=== PATIENT | male | born 1950 | race Caucasian/White ===

== ENCOUNTER 2022-06-08 10:16 | Inpatient (IN) | payer OTHER ==
--- OUTSIDE RECORDS SUMMARY | 2022-06-08 10:23 | XMS REPORT | Continuity of Care Document ---
:1950 Author Organization [facility] t Address [address] [place] [address] Care Team Providers Name Role Phone Duncan ADAMS, Waldo Primary Care Physician Nadiya ADAMS, Prakash Sandoval Attending Clinician [phone] Muriel Nava MD Attending Clinician Bismark Cartwright MD Attending Clinician Da Rogers MD Attending Clinician Da Velarde MD Attending Clinician Gavin Kilpatrick MD Attending Clinician Carolyn ADAMS, Imeve M Attending Clinician Ray Carranza MD Attending Clinician Hermila Toure Attending Clinician Constance Figueredo Attending Clinician Unavailable Barry Rodas MD Attending Clinician MD DA VELARDE Attending Clinician Unavailable MATI SAL Attending Clinician Unavailable MD MATI SAL Attending Clinician Unavailable JIM COREAS Attending Clinician Unavailable Hedy Metz Attending Clinician BISMARK CARTWRIGHT Admitting Clinician Unavailable MURIEL NAVA Admitting Clinician Unavailable DA VELARDE Admitting Clinician Unavailable MD DA VELARDE Admitting Clinician Unavailable MATI SAL Admitting Clinician Unavailable MD MATI SAL Admitting Clinician Unavailable Payers Payer Name Policy Type Policy Number Effective Date Expiration Date S jenny Problems Condition Condition Condition Status Onset Resolution Last Treating Co mments Source Name Details Category Date Date Treatment Clinician Date Hernia of Hernia of Disease Active Met hodi abdominal abdominal 7-27 st cavity cavity 00:00: Hospita 00 l Ventral Ventral Disease Active Methodi hernia hernia 7-14 st with with 00:00: Hospita obstructio obstructio 00 l n n 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 00:00: Ho spita cular cular 00 l disease disease Hyperlipid Hyperlipid Disease Active M ethodi emia LDL emia LDL 606 st goal <70 goal <70 00:00: Hospit a 00 l Primary Primary Disease Active [facility] hypertensi hypertensi 6-06 st on on 00:00: Hospita 00 l 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 00:00: Ho spita on, on, 00 l subsequent subsequent encounter encounter for for fracture fracture with with 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 2-02 st after after 00:00: Hospita sternotomy sternotomy 00 l S/P mitral S/P mitral Disease Active M ethodi valve valve 1-19 st repair repair 00:00: Hospita 00 l 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 00:00: Hospita involving involving 00 [place] coronary coronary artery artery without without angina angina pectoris pectoris UNK UNK Diagnosis Active 2015-11-13 Mem oria Active 11-04 08:37:00 l 11/05/2015 00:00: Lyndon grider [facility] Coronary Coronary Problem Active 2015-11-16 Memoria arterioscl arterioscl 00:56:07 l erosis erosis Mike (disorder) (disorder) Active Problem 11/16/2015 [facility] Hemorrhoid Hemorrhoi Problem Active 2015-11-16 Memoria s ds 00:56:07 l (disorder) (disorder) He rmann Active Problem 11/16/2015 [facility] Hypertensi Hypertens Problem Active 2015-11-16 Memoria ve lukas 00:56:07 l disorder, disorder, Herm nanci systemic systemic arterial arterial (disorder) (disorder) Active Problem 11/16/2015 [facility] Hearing Hearing Problem Active 2015-11-16 Me moria loss loss 00:56:07 l (finding) (finding) Herm nanci Active Problem 11/16/2015 [facility] Spinal Spinal Problem Active 2015-11-16 Aristides lorie arthrodesi arthrodesi 00:56:07 l s s [place] (procedure (procedure ) ) Active Problem 11/16/2015 [facility] 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 Family History Family Member Diagnosis Comments Start Date Stop Date Source Natural brother Stroke [facility] Natural father Stroke [facility] Social History Social Habit Start Date Stop Date Quantity Comments Source History of tobacco 1971-04-13 Current smoker Me [facility]ist use 00:00:00 Hospital History [facility] Hospit al History [facility] Alcohol intake 2021-11-12 2021-11-12 [facility] 00:00:00 00:00:00 non-drinker Hospital (finding) Cigarettes smoked 2021-04-11 2021-04-[address] current (pack per 00:00:00 00:00:00 Hospita day) - Reported Cigarette 2021-04-11 2021-04-11 [facility] pack-[facility] 00:[facility]:00 00:00:00 Hospital Tobacco use and 2021-04-11 2021-04-11 Smokeless tobacco Me [facility]ist exposure 00:00:00 00:00:00 non-user Hospital History SDOH 2020-05-15 2020-05-15 1 [facility] Alcohol Frequency 00:00:00 00:00:00 Hospita l Social History 2015-11-09 2015-11-09 [facility] ermann 12:55:52 12:55:52 Sex Ass[birth year] At [birth year] M [facility] 00:00:00 00:00:00 Hospital Smoking Status Start Date Stop Date Source Ex-smoker 2021-04-11 00:00:00 2021-04-11 00:00:00 [facility] Medications Ordered Filled Start Stop Current Ordering Indication Dosage Frequency Signature Comments Components Source Medication Medication Date Date Medication? Clinician (SIG) Name Name jessica Yes 200mg QD Take 200 M ethodi ne (COQ-10 8- mg by st ORAL) 17:37: mouth Hospita 13 daily. l cholecalcif Yes QD Take by Met juliane jaquezol, 11-[address] vitamin D3, 17:37: daily. Hosp eloy (VITAMIN 13 l D3) 2,000 unit tablet Bifidobacte Yes 1{tbl} Q.5D Take 1 Me thodi rium 11-[address] infantis 17:37: mouth 2 Hospit a (DIGESTIVE 13 (two) l PROBIOTIC times a ORAL) day. ascorbic Yes QD Take by Method i acid 11-[address] (VITAMIN C 17:37: daily. Hospi ta ORAL) 13 l aspirin Yes 81mg QD Take 81 mg Meth angella (ECOTRIN) 11-[address] 81 MG 17:37: daily. Hospita enteric 13 LAST DOSE l coated TAKEN tablet 10/18/2021 cephalexin 2021- No 500mg [id number] Take 1 Methodi (Keflex) 7-30 08-05 [id number] capsule s t 500 MG 00:00: 04:59 3D (500 mg Hospita capsule 00 :00 total) by l mouth 3 (three) times a day for 5 days. traMADoL 2021- [place] [id number] 50mg Q6H Take 1 Metho di (Ultram) 50 7-16 07-24 tablet (50 s t mg tablet 00:00: 04:59 mg total) Ho spita 00 :00 by mouth l every 6 (six) hours as needed for moderate pain for up to 7 days .acute pain. clopidogreL 2021- No 75mg QD Take 75 mg Methodi (PLAVIX) 75 606 06-[address] mg tablet 10:55: 00:00 daily. Hospi ta 18 :00 l rivaroxaban Yes 2.5mg Q.5D Take 1 Met hodi (Xarelto) 6-[address] 2.5 mg 00:00: (2.5 mg Hospita tablet 00 total) by l tablet mouth 2 (two) times a day. Stop clopidogre l. metoprolol Yes 25mg QD Take 25 mg M ethodi succinate 1-[address] XL 00:00: daily. Hospita (TOPROL-XL) 00 l 25 mg 24 hr tablet atorvastati Yes 40mg QD Take 40 mg Methodi n (LIPITOR) 4-[address] 40 mg 00:00: every Hospita tablet 00 evening. l amoxicillin 2021- No QD daily. Met hodi -pot 2-14 06-06 st clavulanate 00:00: 00:00 Hospi ta (AUGMENTIN) 00 :00 l 875-125 mg per tablet Flumazenil No Notes: Memor ia 11-12 (Same as: l 17:17: Romazicon) Fentanyl No Notes: Memoria 11-12 (Same as: l 17:17: Sublimaze) Preservati ve free. Hydromorpho No 0.5 mg, Mem oria ne 11-12 0.5 mL, l 17:17: Route: IVP, Drug form: INJ, Q5Min, Dosing Weight 93.318, kg, PRN Pain Score 7-10, Start date: 11/13/15 12:17:00 CDT, Duration: 4 doses or times, Stop date: Limited # of times Promethazin No Notes: Do M emoria e 11-12 not give l 17:17: IV push. (Same as: Phenergan) Ondansetron No Notes: Aristides lorie 11-12 (Same as: l 17:17: Zofran) MEDICATION WASTE Product Size: 4 mg Product Wasted: ___ mg Meperidine No Notes: Memor ia 11-12 (Same As: l 17:17: Demerol) Diphenhydra No Notes: Aristides lorie mine 11-12 (Same as: l 17:17: Benadryl) Naloxone No Notes: Memoria 11-12 Same as l 17:17: Narcan Oxycodone No Notes: Memori a 11-12 (Same as: l 17:17: Roxicodone ) Flumazenil No Notes: Memor ia 11-12 (Same as: l 17:17: Romazicon) Acetaminoph No Notes: Aristides lorie en 11-12 Infuse l 17:17: over 15 minutes Do not exceed 4gm/day of acetaminop hen MEDICATION WASTE Product Size: 1000 mg Product Wasted: ___ mg esmolol No Notes: Memoria 11-12 (Same as: l 17:17: Brevibloc) Hydralazine No Notes: Aristides lorie 11-12 (Same as: l 17:17: Apresoline ) Push over 5 minutes Labetalol No Notes: Memori a 11-12 (Same as: l 17:17: Normodyne, Trandate) Push over 2 minutes Give bolus over 2-3 minutes. Sodium No 500 mL, Memoria Chloride 11-12 Rate: 125 l 0.154 17:17: ml/hr, Mike MEQ/ML 00 Infuse Injectable over: 4 Solution hr, Route: IV, Dosing Weight 93.318 kg, Total Volume: 500, Start date: 11/13/15 12:17:00 CDT, Duration: 30 day, Stop date: 12/13/15 12:16:00 CDT Calcium No 1,000 mL, Memor ia Chloride 11-12 Rate: 125 l 0.0014 17:17: ml/hr, Jackson MEQ/ML / 00 Infuse Potassium over: 8 Chloride hr, Route: 0.004 IV, Dosing MEQ/ML / Weight Sodium 93.318 kg, Chloride Total 0.103 Volume: MEQ/ML / 1,000, Sodium Start Lactate date: 0.028 11/13/15 MEQ/ML 12:17:00 Injectable CDT, Solution Duration: 30 day, Stop date: 12/13/15 12:16:00 CDT Fentanyl No Notes: Memoria 11-12 (Same as: l 17:17: Sublimaze) Preservati ve free. Hydromorpho No 0.5 mg, Mem oria ne 11-12 0.5 mL, l 17:17: Route: IVP, Drug form: INJ, Q5Min, Dosing Weight 93.318, kg, PRN Pain Score 7-10, Start date: 11/13/15 12:17:00 CDT, Duration: 4 doses or times, Stop date: Limited # of times Promethazin No Notes: Do M emoria e 11-12 not give l 17:17: IV push. (Same as: Phenergan) Ondansetron No Notes: Aristides lorie 11-12 (Same as: l 17:17: Zofran) MEDICATION WASTE Product Size: 4 mg Product Wasted: ___ mg Meperidine No Notes: Memor ia 11-12 (Same As: l 17:17: Demerol) Diphenhydra No Notes: Aristides lorie mine 11-12 (Same as: l 17:17: Benadryl) Naloxone No Notes: Memoria 11-12 Same as l 17:17: Narcan Oxycodone No Notes: Memori a 11-12 (Same as: l 17:17: Roxicodone ) Acetaminoph No Notes: Aristides lorie en 11-12 Infuse l 17:17: over 15 minutes Do not exceed 4gm/day of acetaminop hen MEDICATION WASTE Product Size: 1000 mg Product Wasted: ___ mg esmolol No Notes: Memoria 11-12 (Same as: l 17:17: Brevibloc) Hydralazine No Notes: Aristides lorie 11-12 (Same as: l 17:17: Apresoline ) Push over 5 minutes Labetalol No Notes: Memori a 11-12 (Same as: l 17:17: Normodyne, Mike 00 Trandate) Push over 2 minutes Give bolus over 2-3 minutes. Sodium 2016-0 No 500 mL, Memoria Chloride 11-12 Rate: 125 l 0.154 17:17: ml/hr, Jackson MEQ/ML 00 Infuse Injectable over: 4 Solution hr, Route: IV, Dosing Weight 93.318 kg, Total Volume: 500, Start date: 11/13/15 12:17:00 CDT, Duration: 30 day, Stop date: 12/13/15 12:16:00 CDT Calcium 0 No 1,000 mL, Memor ia Chloride 11-12 Rate: 125 l 0.0014 17:17: ml/hr, Mike MEQ/ML / 00 Infuse Potassium over: 8 Chloride hr, Route: 0.004 IV, Dosing MEQ/ML / Weight Sodium 93.318 kg, Chloride Total 0.103 Volume: MEQ/ML / 1,000, Sodium Start Lactate date: 0.028 11/13/15 MEQ/ML 12:17:00 Injectable CDT, Solution Duration: 30 day, Stop date: 12/13/15 12:16:00 CDT ketOROLAC 2015-0 No IV, ONCE Aristides lorie (ANES) 11-12 l 16:45: Mike 00 ketOROLAC 2015-0 No IV, ONCE Aristides lorie (ANES) 11-12 l 16:45: Jackson 00 ondansetron 0 No Route: IV, Memoria (ANES) 11-12 Drug form: l 16:43: INJ, ONCE, Stop date: 11/13/15 11:43:00 CDT phenylephri 0 No Route: IV, Memoria ne (ANES) 11-12 Drug form: l 16:43: INJ, ONCE, Stop date: 11/13/15 11:43:00 CDT ondansetron 0 No Route: IV, Memoria (ANES) 11-12 Drug form: l 16:43: INJ, ONCE, Stop date: 11/13/15 11:43:00 CDT phenylephri 2015-0 No Route: IV, Memoria ne (ANES) 11-12 Drug form: l 16:43: INJ, ONCE, Stop date: 11/13/15 11:43:00 CDT propofol 2016-0 No Route: IV, Mem oria (ANES) 8 Drug form: l 16:38: INJ, ONCE, Jackson Stop date: 11/13/15 11:38:00 CDT lidocaine 2016-0 No Route: IV, Me moria (ANES) 8 Drug form: l 16:38: INJ, ONCE, Mike Stop date: 11/13/15 11:38:00 CDT fentaNYL 20160 No Route: IV, Mem oria (ANES) 8 Drug form: l 16:38: INJ, ONCE, Mike Stop date: 11/13/15 11:38:00 CDT midazolam 2016-0 No Route: IV, Me moria (ANES) 8 Drug form: l 16:38: SOLN, Mike ONCE, Stop date: 11/13/15 11:38:00 CDT propofol 2016-0 No Route: IV, Mem oria (ANES) 11-12 Drug form: l 16:38: INJ, ONCE, Mike 00 Stop date: 11/13/15 11:38:00 CDT lidocaine 0 No Route: IV, Me moria (ANES) 8 Drug form: l 16:38: INJ, ONCE, Jackson Stop date: 11/13/15 11:38:00 CDT fentaNYL 2016-0 No Route: IV, Mem oria (ANES) 11-12 Drug form: l 16:38: INJ, ONCE, Jackson Stop date: 11/13/15 11:38:00 CDT midazolam 2016-0 No Route: IV, Me moria (ANES) 8 Drug form: l 16:38: SOLN, Mike 00 ONCE, Stop date: 11/13/15 11:38:00 CDT acetaminoph 0 No Route: IV, Memoria en (ANES) 8 Drug form: l (ANES) 15:57: INJ, Start Michelle nn 00 date: 11/13/15 10:57:00 CDT, Stop date: 11/13/15 11:57:00 CDT acetaminoph 0 No Route: IV, Memoria en (ANES) 8 Drug form: l (ANES) 15:57: INJ, Start Michelle nn 00 date: 11/13/15 10:57:00 CDT, Stop date: 11/13/15 11:57:00 CDT LR 500 ml No Route: IV, Me moria INJ (ANES) 11-12 Total l 15:53: Volume: Jackson 00 500, Start date: 11/13/15 10:53:00 CDT, Stop date: 11/13/15 11:53:00 CDT LR 500 ml No Route: IV, Me moria INJ (ANES) 11-12 Total l 15:53: Volume: Jackson 00 500, Start date: 11/13/15 10:53:00 CDT, Stop date: 11/13/15 11:53:00 CDT Ketorolac Yes 10 mg = 1 Mem oria Tromethamin 11-12 tab, PO, l e 10 MG 14:47: Q6H, PRN Lyndon n Oral Tablet 00 Pain, # 20 tab, 0 Refill(s) Ketorolac Yes 10 mg = 1 Mem oria Tromethamin 11-12 tab, PO, l e 10 MG 14:47: Q6H, PRN Lyndon n Oral Tablet 00 Pain, # 20 tab, 0 Refill(s) Albuterol No 3 mL, Memoria 0.833 MG/ML 11-12 Route: l / 14:42: NEB, Mike Ipratropium 00 Dosing Rolla Weight 0.167 MG/ML 93.318, Inhalant kg, ONCE, Solution STAT, Start date: 11/13/15 9:42:00 CDT, Stop date: 11/13/15 9:42:00 CDT Sodium 2015- No 500 mL, Memoria Chloride 11-12 Rate: 25 l 0.154 14:42: ml/hr, Mike MEQ/ML 00 Infuse Injectable over: 20 Solution hr, Route: IV, Dosing Weight 93.318 kg, Total Volume: 500, Start date: 11/13/15 9:42:00 CDT, Duration: 30 day, Stop date: 12/13/15 9:41:00 CDT Calcium No 1,000 mL, Memor ia Chloride 11-12 Rate: 25 l 0.0014 14:42: ml/hr, Jackson MEQ/ML / 00 Infuse Potassium over: 40 Chloride hr, Route: 0.004 IV, Dosing MEQ/ML / Weight Sodium 93.318 kg, Chloride Total 0.103 Volume: MEQ/ML / 1,000, Sodium Start Lactate date: 0.028 11/13/15 MEQ/ML 9:42:00 Injectable CDT, Solution Duration: 30 day, Stop date: 12/13/15 9:41:00 CDT Albuterol 2016-0 No 3 mL, Memoria 0.833 MG/ML 11-12 Route: l / 14:42: NEB, Jackson Ipratropium 00 Dosing Rolla Weight 0.167 MG/ML 93.318, Inhalant kg, ONCE, Solution STAT, Start date: 11/13/15 9:42:00 CDT, Stop date: 11/13/15 9:42:00 CDT Sodium 2016-0 No 500 mL, Memoria Chloride 11-12 Rate: 25 l 0.154 14:42: ml/hr, Jackson MEQ/ML 00 Infuse Injectable over: 20 Solution hr, Route: IV, Dosing Weight 93.318 kg, Total Volume: 500, Start date: 11/13/15 9:42:00 CDT, Duration: 30 day, Stop date: 12/13/15 9:41:00 CDT Calcium 2016-0 No 1,000 mL, Memor ia Chloride 11-12 Rate: 25 l 0.0014 14:42: ml/hr, Mike MEQ/ML / 00 Infuse Potassium over: 40 Chloride hr, Route: 0.004 IV, Dosing MEQ/ML / Weight Sodium 93.318 kg, Chloride Total 0.103 Volume: MEQ/ML / 1,000, Sodium Start Lactate date: 0.028 11/13/15 MEQ/ML 9:42:00 Injectable CDT, Solution Duration: 30 day, Stop date: 12/13/15 9:41:00 CDT Exparel 2015-0 No Notes: Memoria 11-12 (Same as: l 12:00: Exparel) Mike 00 NOT FOR IV use Postoperat lukas analgesia: Infiltrati on (local): Dose is based on surgical site and volume required to cover the area (in general, the maximum total dose is 266 mg). Bunionecto my: 7 mL into the tissues surroundin g the osteotomy and 1 mL into the subcutaneo us tissue of the surgical site (total dose = 8 mL [106 mg]) Hemorrhoid ectomy: 30 mL (20 mL vial diluted with 10 mL NS) divided and administer ed as 6 injections of 5 mL each (total dose = 30 mL [266 mg]) Exparel No Notes: Memoria 11-12 (Same as: l 12:00: Exparel) Mike NOT FOR IV use Postoperat lukas analgesia: Infiltrati on (local): Dose is based on surgical site and volume required to cover the area (in general, the maximum total dose is 266 mg). Bunionecto my: 7 mL into the tissues surroundin g the osteotomy and 1 mL into the subcutaneo us tissue of the surgical site (total dose = 8 mL [106 mg]) Hemorrhoid ectomy: 30 mL (20 mL vial diluted with 10 mL NS) divided and administer ed as 6 injections of 5 mL each (total dose = 30 mL [266 mg]) metoprolol Yes 50 mg = 1 Me moria tartrate 50 7-29 tab, PO, l mg oral 12:58: Daily, 0 Lyndon n tablet 00 Refill(s) metoprolol Yes 50 mg = 1 Me moria tartrate 50 7-29 tab, PO, l mg oral 12:58: Daily, 0 Lyndon n tablet 00 Refill(s) Immunizations Ordered Immunization Filled Immunization Date Status Commen ts Source Name Name [employer] COVID-19 MRNA 2021-02-06 Completed Meth odist VACCINATION 00:00:00 [facility] COVID-19 2020-05-22 Completed Methodis t MRNA VACCINATION 00:00:00 [facility] COVID-19 2020-04-25 Completed Methodis t MRNA VACCINATION 00:00:00 Hospital Vital Signs Vital Name Observation Time Observation Value Comments Source Systolic blood 2022-04-10 21:36:00 136 mm[Hg] [facility] pressure Diastolic blood 2022-04-10 21:36:00 68 mm[Hg] [facility] pressure Heart rate 2022-04-10 21:36:00 65 /min [facility] Respiratory rate 2022-04-10 21:36:00 16 /min [facility] Oxygen saturation in 2022-04-10 21:36:00 97 /min [facility] Arterial blood by Pulse oximetry Body weight 2022-04-10 21:11:00 83.915 kg [facility] BMI 2022-04-10 21:11:00 26.54 kg/m2 [facility] Body height 2022-04-10 21:11:00 177.8 cm [facility] Body temperature 2021-11-11 19:54:34 36.5 Arina [facility] Systolic (mm Hg) 2015-11-13 18:15:00 Aristides rial Jackson Diastolic (mm Hg) 2015-11-13 18:15:00 Mem orial Mike Systolic (mm Hg) 2015-11-13 17:30:00 Aristides rial Mike Diastolic (mm Hg) 2015-11-13 17:30:00 Mem orial Jackson Respitory Rate 2015-11-13 17:30:00 Memori al [place] Systolic (mm Hg) 2015-11-13 17:15:00 Aristides rial Mike Diastolic (mm Hg) 2015-11-13 17:15:00 Mem orial Mike Respitory Rate 2015-11-13 17:15:00 Memori al [place] Respitory Rate 2015-11-13 [facility] Oral (F) 2015-11-09 12:59:00 97.6 F [facility] Heart Rate 2015-11-09 12:59:00 [facility] Height 2015-11-09 12:45:00 177.8 cm [facility] BMI Calculated 2015-11-09 12:45:00 [facility] Weight 2015-11-09 12:45:00 [facility] Procedures Procedure Date / Time Performing Clinician Source Performed CV CTA CORONARY ARTERIES 2022-04-10 22:20:57 Prakash Blackman [facility] W CONTRAST Jaime CT CARDIAC OVERREAD 2022-04-10 [facility]14[facility]ATININE 2022-04-10 21:06:00 Prakash Blackman ospital Jaime ESTIMATED GFR 2022-04-10 21:06:00 Prakash Blackman robert Sandoval CBC WITH PLATELET AND 2021-11-11 09:51:00 Chay Bronson [facility] DIFFERENTIAL BASIC METABOLIC PANEL 2021-11-11 09:51:00 [facility] 2021-11-11 09:51:00 Bismark Cartwright Ho spital ESTIMATED GFR 2021-11-11 09:51:00 Bismark Cartwright spital CBC WITH PLATELET AND 2021-11-09 10:36:00 [facility] DIFFERENTIAL BASIC METABOLIC PANEL 2021-11-09 10:36:00 [facility] MAGNESIUM LEVEL 2021-11-09 10:36:00 [facility] ESTIMATED GFR 2021-11-09 10:36:00 [facility] VANCOMYCIN LEVEL, TROUGH 2021-11-09 01:26:00 Bismark Cartwright [facility] CONSULT TO OSTOMY CARE 2021-11-08 19:18:12 [facility] NURSE CBC WITH PLATELET AND 2021-11-08 16:20:00 York [facility] DIFFERENTIAL BASIC METABOLIC PANEL 2021-11-08 16:20:00 [facility] MAGNESIUM LEVEL 2021-11-08 16:20:00 [facility] ESTIMATED GFR 2021-11-08 16:20:00 [facility] ANAEROBIC CULTURE 2021-11-08 13:00:00 [facility] AEROBIC CULTURE 2021-11-08 13:00:00 [facility] GRAM STAIN 2021-11-08 13:00:00 [facility] DC AN ELECTIVE 2021-11-08 12:28:00 Ginger Leon [facility] ENDOTRACHEAL AIRWAY INCISION AND DRAINAGE, 2021-11-08 12:18:00 [facility] WOUND, POSTOPERATIVE, COMPLEX TYPE AND SCREEN 2021-11-08 09:24:00 [facility] CBC WITH PLATELET AND 2021-11-08 09:24:00 [facility] DIFFERENTIAL BASIC METABOLIC PANEL 2021-11-08 09:24[facility] 2021-11-08 09:24:00 Bismark Cartwright spital ESTIMATED GFR 2021-11-08 09:24:00 Bismark Cartwright spital CBC WITH PLATELET AND 2021-11-07 09:07:00 [facility] DIFFERENTIAL BASIC METABOLIC PANEL 2021-11-07 09:07:00 [facility] MAGNESIUM LEVEL 2021-11-07 09:07:[address] [facility] ospital PROTHROMBIN TIME WITH INR 2021-11-07 09:07:00 [facility] PARTIAL THROMBOPLASTIN 2021-11-07 09:07:00 [facility] TIME (PTT) ESTIMATED GFR 2021-11-07 09:07:00 [facility] URINE C[facility] 2021-11-07 02:42:[address] [facility] URINALYSIS SCREEN AND 2021-11-07 02:42:00 [facility] MICROSCOPY, WITH REFLEX TO CULTURE AEROBIC CULTURE 2021-11-07 02:41:00 [facility] ANAEROBIC CULTURE 2021-11-07 02:41:00 [facility] GRAM STAIN 2021-11-07 02:41:00 [facility] BLOOD CULTURE, AEROBIC & 2021-11-07 02:27:00 [facility] ANAEROBIC COVID-19 QUALITATIVE 2021-11-07 02:27:00 [facility] RT-PCR CBC WITH PLATELET AND 2021-11-07 02:27:00 [facility] DIFFERENTIAL COMPREHENSIVE METABOLIC 2021-11-07 02:27:00 [facility] PAN[facility] MAGNESIUM LEVEL 2021-11-07 02:27:00 [facility] PROCALCITONIN 2021-11-07 02:27:00 Da Rogers ospital C-REACTIVE PROTEIN 2021-11-07 02:[facility] 2021-11-07 02:27:00 Da Rogers ospital POC GLUCOSE 2021-10-25 12:51:00 Muriel Nava spital BASIC METABOLIC PANEL 2021-10-25 09:59:00 Lon Henderson [facility] CBC WITH PLATELET AND 2021-10-25 09:59:00 YorkLon [facility] DIFFERENTIAL ESTIMATED GFR 2021-10-25 09:59:00 York [facility] XR CHEST 1 VW PORTABLE 2021-10-24 16:10:00 YorkLon [facility] CBC WITH PLATELET AND 2021-10-24 15:05:00 YorkLon [facility] DIFFERENTIAL BASIC METABOLIC PANEL 2021-10-24 15:05:00 YorkLon [facility] ESTIMATED GFR 2021-10-24 15:05:00 [facility] HC NERVE BLOCK TAP BLOCK 2021-10-24 14:38:26 [facility] BILAT INJECTION ARTERIAL LINE 2021-10-24 12:51:[address] [facility] DC AN ELECTIVE 2021-10-24 12:33:[address] [facility] ENDOTRACHEAL AIRWAY REPAIR, HERNIA, 2021-10-24 12:25:00 Da Velarde [facility] INCISIONAL OR VENTRAL ECG PRE/POST OP 2021-10-22 19:13:02 [facility] CBC WITH PLATELET AND 2021-10-22 18:59:00 [facility] DIFFERENTIAL COMPREHENSIVE METABOLIC 2021-10-22 18:59:00 [facility] PANEL PROTHROMBIN TIME WITH INR 2021-10-22 18:59:00 [facility] 2021-10-22 18:59:00 [facility] TIME (PTT) HEMOGLOBIN A1C 2021-10-22 18:59:00 [facility] TYPE AND SCREEN 2021-10-22 18:59:00 [facility] ESTIMATED GFR 2021-10-22 18:59:00 [facility] ANTIBODY IDENTIFICATION 2021-10-22 18:59:00 [facility] PV TRANSCRANIAL DOPPLER 2021-09-16 17:00:[address] [facility] INTRACRANIAL ARTERIES COMPLETE US CAROTID DUPLEX 2021-09-16 16:53:00 Vol [facility] BILATERAL Operation<sup>3</sup> [facility] Rotator cuff repair [facility] Plan of Care Planned Activity Planned Date Details Comments Source Future Scheduled 2022-06-03 Hepatitis C screening [facility] Test 09:42:06 (procedure) [code = [id number]] Future Scheduled 2022-06-03 COLONOSCOPY SCREENING [facility] Test 09:42:06 [code = COLONOSCOPY SCREENING] Future Scheduled 2022-06-03 SHINGLES VACCINES (1 Met [facility] Test 09:42:06 of 2) [code = SHINGLES VACCINES (1 of 2)] Future Scheduled 2022-06-03 65+ PNEUMOCOCCAL [facility] Test 09:42:06 VACCINE (2 - PPSV23 if available, else PCV20) [code = 65+ PNEUMOCOCCAL VACCINE (2 - PPSV23 if available, else PCV20)] Future Scheduled 2022-06-03 INFLUENZA VACCINE Method [facility] Test 09:42:06 [code = INFLUENZA VACCINE] Encounters Start End Encounter Admission Attending Care Care Encounter Source Date/Time Date/Time Type Type Clinicians Facility Department ID 2022-04-10 2022-04-10 [facility], 1.2.840.1 [id number] Methodi 15:14:03 23:59:00 Encounter Prakash 23654.1.[address] [facility] 3.430.2.7 Hospit a .3.890486 l .8 2022-04-10 2022-04-10 [facility], 1.2.840.1 [id number] Methodi 14:26:37 15:13:00 Encounter Prakash 53650.1.[address] Jaime 3.430.2.7 Hospit a .3.754506 l .8 2022-04-10 2022-04-10 Travel 1.2.840.1 1.2.053.165 [id number] Methodi 00:00:00 00:00:[address] 3.430.2.7 0.2.7.3.698 spita .3.710100 084.8 l .8 2022-04-10 2022-04-10 Outpatient [facility] [id number] [place] 00:00:00 00:00:00 PRAKASH 825 Method i 2022-04-10 2022-04-10 Outpatient [facility] [id number] [place] 00:00:00 00:00:00 PRAKASH 017 Method i 2022-04-09 2022-04-09 [facility], 1.2.840.1 [id number] Methodi 00:00:00 00:00:00 Orders Prakash 18782.1.[address] Jaime 3.430.2.7 Hospit a .3.703921 l .8 2021-11-06 2021-11-11 [facility] Muriel Nava 1.2.840.1 [id number] Methodi 20:24:00 17:37:00 Encounter Bismark Cartwright 73473.1.[address] Da [facility] 3.430.2.7 Hospita .3.112377 l .8 2021-11-06 2021-11-11 Inpatient CHAY [facility] 012 [id number] [place] 00:00:00 00:00:00 BISMARK Nelson [facility] 2021-11-08 2021-11-08 Surgery Syd 1.2.840.1 [id number] Methodi 07:30:00 10:15:00 Da Hector 65420.1.1 629 s t 3.430.2.7 Hospit a .3.471496 l .8 2021-11-08 2021-11-08 Anesthesia Hair Kilpatrickmaddi Hernandes 1.2.840.1 [id number] Methodi 07:18:00 08:49:00 Event Ginger Leon 78803.1.[address] 3.430.2.7 Hospit a .3.619956 l .8 2021-11-06 2021-11-06 Travel 1.2.840.1 1.2.987.013 4634 [id number] Methodi 00:00:00 00:00:[address] 3.430.2.7 0.2.7.3.698 Ho spita .3.081605 084.8 l .8 2021-10-24 2021-10-26 Hospital Da Velarde 1.2.840.1 [id number] Methodi 05:09:00 15:32:00 Encounter Muriel Nava 38599.1.[address] 3.430.2.7 Hospit a .3.068239 l .8 2021-10-24 2021-10-26 Inpatient MURIEL NAVA [facility] 021 [id number] [place] 00:00:00 00:00:[address] 2021-10-24 2021-10-24 Surgery Velarde, 1.2.840.1 [id number] Methodi 07:30:00 10:20:00 Da Hector 46370.1.1 626 s t 3.430.2.7 Hospit a .3.113027 l .8 2021-10-24 2021-10-24 Anesthesia Ray Carranza 1.2.840.1 [id number] Methodi 07:25:00 09:55:00 Event Hermila Toure 63787.1.[address] 3.430.2.7 Hospit a .3.525469 l .8 2021-10-24 2021-10-24 Travel 1.2.840.1 1.2.895.353 7393 [id number] Methodi 00:00:00 00:00:[address] 3.430.2.7 0.2.7.3.698 Ho spita .3.954120 084.8 l .8 2021-10-22 2021-10-22 Pre-Admiss Syd, 1.2.840.1 [id number] Methodi 13:20:00 14:20:00 ion Da Hector 93779.1.1 503 s t Testing 3.430.2.7 Hospit a .3.283770 l .8 2021-10-22 2021-10-22 Outpatient SYD [facility] [id number] [place] 00:00:00 00:00:00 DA Villareal [facility] 2021-10-22 2021-10-22 Travel 1.2.840.1 1.2.589.193 1206 [id number] Methodi 00:00:00 00:00:[address] 3.430.2.7 0.2.7.3.698 Ho spita .3.744076 084.8 l .8 2021-09-19 2021-09-19 Telephone Terell, 1.2.840.1 [id number] Methodi 00:00:00 00:00:[address] 3.430.2.7 Hospit a .3.598921 l .8 2021-09-16 2021-09-16 Office Barry Rodas 1.2.840.1 [id number] Methodi 10:45:00 12:40:03 Visit Mitesh 22036.1.[address] 3.430.2.7 Hospit a .3.304319 l .8 2021-09-16 2021-09-16 Outpatient BARRY RODAS [facility] [id number] [place] 00:00:00 00:00:[address] 2021-09-16 2021-09-16 Outpatient BARRY RODAS [facility] [id number] [place] 00:00:00 00:00:[address] 2021-09-16 2021-09-16 Outpatient BARRY RODAS [facility] [id number] [place] 00:00:00 00:00:[address] 2021-09-16 2021-09-16 Travel 1.2.840.1 1.2.800.988 [id number] Methodi 00:00:00 00:00:[address] 3.430.2.7 0.2.7.3.698 Ho spita .3.805472 084.8 l .8 2021-09-12 2021-09-12 Orders Terell, 1.2.840.1 [id number] Methodi 00:00:00 00:00:00 Only Constance 84240.1.[address] 3.430.2.7 Hospit a .3.722331 l .8 2021-04-16 2021-04-20 Inpatient MURIEL NAVA [facility] 027 [id number] [place] 00:00:00 00:00:00 884 Method i 2021-04-11 2021-04-11 Outpatient VELARDE, [facility] [id number] [place] 00:00:00 00:00:00 DA 853 Method i 2021-04-11 2021-04-11 Outpatient VELARDE, [facility] [id number] [place] 00:00:00 00:00:00 DA 368 Method i 2021-04-08 2021-04-08 Outpatient VELARDE, [facility] [id number] [place] 00:00:00 00:00:00 DA 932 Method i 2021-03-18 2021-03-18 Outpatient DORON, [facility] [id number] [place] 00:00:00 00:00:00 MATI 028 Method i 2021-02-18 2021-02-18 Outpatient NADIYA, [facility] [id number] [place] 00:00:00 00:00:00 PRAKASH 881 Method i 2020-11-01 2020-11-01 Outpatient DORON, [facility] [id number] [place] 00:00:00 00:00:00 MATI 563 Method i 2020-09-24 2020-09-24 Outpatient BARRY RODAS [facility] [id number] [place] 00:00:00 00:00:[address] 2020-09-24 2020-09-24 Outpatient [facility] [id number] [place] 00:00:00 00:00:[address] 2020-09-24 2020-09-24 Outpatient [facility] [id number] [place] 00:00:00 00:00:[address] 2020-08-20 2020-08-20 Outpatient LAWRIE, [facility] [id number] [place] 00:00:00 00:00:00 MATI [address] 2020-08-20 2020-08-20 Outpatient LAWRIE, [facility] [id number] [place] 00:00:00 00:00:00 MATI [address] 2020-08-14 2020-08-14 Outpatient LAWRIE, [facility] [id number] [place] 00:00:00 00:00:00 MATI [address] 2020-05-15 2020-05-16 Outpatient LAWRIE, [facility] [id number] [place] 00:00:00 00:00:00 MATI [address] 2020-05-11 2020-05-11 Outpatient LAWRIE, [facility] [id number] [place] 00:00:00 00:00:00 MAIT [address] 2020-05-08 2020-05-08 Outpatient LAWRIE, [facility] [id number] [place] 00:00:00 00:00:00 MATI [address] 2020-05-08 2020-05-08 Outpatient LAWRIE, [facility] [id number] [place] 00:00:00 00:00:00 MATI [address] 2020-05-01 2020-05-01 Outpatient LAWRIE, [facility] [id number] [place] 00:00:00 00:00:00 MATI [address] 2020-02-27 2020-03-01 Outpatient BARRY RODAS [facility] [id number] [place] 00:00:00 00:00:[address] 2019-08-29 2019-09-07 Inpatient LAWRIE, [facility] 027 [id number] [place] 00:00:00 00:00:00 MATI [address] 2019-08-25 2019-08-25 Outpatient VOLPI, BARRY [facility] [id number] [id number] [place] 00:00:00 00:00:[address] 2019-08-25 2019-08-25 Outpatient VOLPI, BARRY [facility] [id number] [place] 00:00:00 00:00:[address] 2019-08-25 2019-08-25 Outpatient VOLPI, BARRY [facility] [id number] [id number] [place] 00:00:00 00:00:[address] 2019-08-25 2019-08-25 Outpatient VOLPI, BARRY [facility] [id number] [place] 00:00:00 00:00:[address] 2019-08-25 2019-08-25 Outpatient VOLPI, BARRY [facility] [id number] [place] 00:00:00 00:00:[address] 2019-08-25 2019-08-25 Outpatient VOLPI, BARRY [facility] [id number] [place] 00:00:00 00:00:[address] 2019-08-12 2019-08-12 Outpatient LAWRIE, [facility] [id number] [place] 00:00:00 00:00:00 MATI [address] 2019-08-12 2019-08-12 Outpatient LAWRIE, [facility] [id number] [place] 00:00:00 00:00:00 MATI [address] 2019-08-11 2019-08-11 Outpatient LORENEIE, [facility] [id number] [place] 00:00:00 00:00:00 MATI [address] 2019-07-05 2019-07-05 Outpatient JIM COREAS [facility] [id number] [place] 00:00:00 00:00:[address] 2019-07-04 2019-07-04 Outpatient JIM COREAS [facility] [id number] [place] 00:00:00 00:00:[address] 2015-12-11 2015-12-11 Outpatient MHIE MHIE [id number] [place] 15:30:00 15:30:00 06 maddi Mckeon 2015-12-11 2015-12-11 Outpatient MHIE MHIE [id number] [place] 15:30:00 15:30:00 06 maddi Mckeon 2015-11-27 2015-11-27 Outpatient MHIE MHIE [id number] [place] 11:15:00 11:15:00 05 maddi Mike 2015-11-27 2015-11-27 Outpatient MHIE MHIE [id number] [place] 11:15:00 11:15:00 05 maddi Mike 2015-11-14 2015-11-14 Outpatient MHIE MHIE [id number] [place] 11:30:00 11:30:00 02 maddi Jackson 2015-11-14 2015-11-14 Outpatient MHIE MHIE [id number] [place] 11:30:00 11:30:00 02 [facility] 2015-11-13 2015-11-13 OBS Day nullFlavo [facility] [id number] [place] 13:37:00 18:30:00 Surgery r Jackson 01 [facility] 2015-11-13 2015-11-13 [id number] [place] 13:37:00 18:30:00 Surgery r Jackson 01 [facility] 2015-11-13 2015-11-13 [id number] 08:37:00 13:30:00 , Theodelenas 2015-11-13 2015-11-13 Outpatient MHIE MHIE [id number] [place] 12:30:00 12:30:00 03 maddi Jackson 2015-11-13 2015-11-13 Outpatient MHIE MHIE [id number] [place] 12:30:00 12:30:00 03 maddi Jackson 2015-11-13 2015-11-13 Outpatient MHIE MHIE [id number] [place] 10:30:00 10:30:00 04 maddi Jackson 2015-11-13 2015-11-13 Outpatient MHIE MHIE [id number] [place] 10:30:00 10:30:00 04 maddi Mckeon Results Test Description Test Time Test Comments Results Result Comments Source POC creatinine 2022-04-10 21:45:00 Test Item Value Reference Range Interpretation Comme nts POC creatinine (test code = 1.1 mg/dl 0.7-1.2 Power Transformer Inspector Name: Huma [id number]) Nancy ID: [id number] [facility] [id number] 21:45:00 Test Item Value Reference Range Interpretation Comments Estimated GFR (test 67 mL/min/1.73 m2 Geoffrey eid Units code = 21028-7) Interpretati onG1 >=90 Normal or highG 2 60-89 Mildly decrease dG3a 45-59 Mildly to moder ately bbkjccrcrX9w 30 -44 Moderately to s everely decreasedG4 15- 29 Severely decreasedG5 <15 Kidney failureThe eGFR was calculated usin g the Chronic Kidney Disease Epidemiology Co llaboration (CKD-EPI) equat ion. Interpretation is based on recommendations of the National Kidney Foundation-Kidn ey Disease Outcomes Qualit y Initiative (NKF-KDOQI) pub lished in 2013. [facility] HospitalAnaerobic [id number] 12:31:00 Test Item Value Reference Range Interpretation Comments Anaerobic No anaerobic Specimen culture isolate organisms InformationS pecimen (test code = isolated. Source: WoundSp ecimen 72336-0) Site: Abdomen: Abdominal Wound [facility] HospitalGram [id number] 22:22:00 Test Item Value Reference Range Interpretation Comments Gram stain No organisms Specimen isolate (test seen InformationSpe cimen code = 1469) Source: WoundSp ecimen Site: Abdomen: Abdominal Wound [facility] HospitalUrine [id number] 05:56:00 Test Item Value Reference Range Interpretation Comments Urine culture (test SEE COMMENT Bacteriu lorie screen code = 4195126) negative. [facility] RNA [Presence] in Respiratory specimen by ZOHAIB with probe [id number] 00:28:59 Test Item Value Reference Range Interpretation Comments SARS-CoV-2 (COVID-19) RNA Not detected [Presence] in Respiratory specimen by ZOHAIB with probe detection (test code = 33364-8) Whether patient is employed in a Unknown healthcare setting (test code = 96164-0) Whether the patient has symptoms Unknown related to condition of interest (test code = 30626-6) Whether the patient was Unknown hospitalized for condition of interest (test code = 04708-5) Whether the patient was admitted Unknown to intensive care unit (ICU) for condition of interest (test code = 84370-7) Whether patient resides in a Unknown congregate care setting (test code = 24085-3) status (test code = Unknown 29423-6) Date and time of symptom onset Unknown (test code = 03115-3) [facility] [id number] 12:52:00 Test Item Value Reference Range Interpretation Comments POC glucose (test 93 mg/dL 65-99 Power Transformer Inspector Sanjana Ramirez code = 66945-9) JeimyDevice ID: [id number] able: TM[facility] Notified RN [facility] Pre/Post [id number] 03:03:18 Test Item Value Reference Range Interpretation Comments Ventricular rate (test 57 code = 253) Atrial rate (test code = 57 255) DC interval (test code = 200 266) QRSD interval (test code 100 = 260) QT interval (test code = 422 264) QTC interval (test code = 410 265) P axis 1 (test code = 6 267) QRS axis 1 (test code = 47 268) T wave axis (test code = 36 270) EKG impression (test code Sinus = 273) bradycardia-Anterose ptal infarct , age undetermined-Abnorma l ECG-- [facility] HospitalAntibody [id number] 02:36:00 Test Item Value Reference Range Interpretation Comments Antibody ID (test POS, Anti-D This antib jose can code = 42114-6) cause red ce ll damage and is considered clinicallysigni fica nt. Red cells f or transfusion ricardo l be negative for th e Dantigen and crossmatch compatible. Verified by 317 6. HOLLIE (test code = LAB: BLOOD EXT NOT HOLLIE) OK, DOS 10/24/21LAB: TRANSFUSED QUESTION NOT ANSWEREDLAB: BLOOD EXT NOT OK, DOS 10/24/21LAB: TRANSFUSED QUESTION NOT ANSWERED [facility] RNA [Presence] in Respiratory specimen by ZOHAIB with probe [id number] 02:10:32 Test Item Value Reference Range Interpretation Comments SARS-CoV-2 (COVID-19) RNA Not detected Not-Detected [Presence] in Respiratory specimen by ZOHAIB with probe detection (test code = 23200-2) Whether patient is employed in a healthcare setting (test code = 88201-7) Whether the patient has symptoms related to condition of interest (test code = 33808-2) Patient was hospitalized because of this condition (test code = 81630-8) Whether the patient was admitted to intensive care unit (ICU) for condition of interest (test code = 62952-1) Whether patient resides in a congregate care setting (test code = 17079-1) ASIF MARQUEZ DKQBATTH-BbQ-6 (COVID-19) RNA [Presence] in Respiratory specimen by ZOHAIB with probe [id number] 13:55:17 Test Item Value Reference Range Interpretation Comments SARS-CoV-2 (COVID-19) RNA Not detected Not-Detected [Presence] in Respiratory specimen by ZOHAIB with probe detection (test code = 38938-4) ASIF MULLINS coronavirus 2 RNA [Presence] in Respiratory specimen by ZOHAIB with probe [id number] 02:25:05 Test Item Value Reference Range Interpretation Comments SARS coronavirus 2 RNA Not detected Not-Detected [Presence] in Respiratory specimen by ZOHAIB with probe detection (test code = 89543-7) GOLD JIMMY OP3Nvoice [id number] 13:36:00 Test Item Value Reference Range Interpretation Comments B/C Ratio (test code = B/C Ratio) 17 6-25 [facility] [id number] 13:36:00 Test Item Value Reference Range Interpretation Comments Globulin (test code = Globulin) 3.7 2.0-4.0 [facility] [id number] 13:36:00 Test Item Value Reference Range Interpretation Comments eGFR (test code = eGFR) 64 [facility] [id number] 13:36:00 Test Item Value Reference Range Interpretation Comments BUN (test code = BUN) 20 7-22 [facility] [id number] 13:36:00 Test Item Value Reference Range Interpretation Comments Bili Total (test code = Bili Total) 0.6 0.2-1.3 [facility] [id number] 13:36:00 Test Item Value Reference Range Interpretation Comments Alk Phos (test code = Alk Phos) 44 39-136 [facility] [id number] 13:36:00 Test Item Value Reference Range Interpretation Comments AST (test code = AST) 32 See_Comment [Auto mated message] The system which ge nerated this result transmit keily reference range : <=37. The reference range was not used to interpr et this result as blanco l/abnormal. [facility]2016-07-29 13:36:00 Test Item Value Reference Range Interpretation Comments ALT (test code = ALT) 30 See_Comment [Auto mated message] The system which ge nerated this result transmit keily reference range : <=65. The reference range was not used to interpr et this result as blanco l/abnormal. [facility]2016-07-29 13:36:00 Test Item Value Reference Range Interpretation Comments Potassium Lvl (test code = Potassium 5.4 3.5-5.1 Lvl) [facility]2016-07-29 13:36:00 Test Item Value Reference Range Interpretation Comments Chloride Lvl (test code = Chloride Lvl) 103 95-109 [facility]2016-07-29 13:36:00 Test Item Value Reference Range Interpretation Comments CO2 (test code = CO2) 28 24-32 [facility]2016-07-29 13:36:00 Test Item Value Reference Range Interpretation Comments Albumin Lvl (test code = Albumin Lvl) 4.0 3.5-5.0 [facility]2016-07-29 13:36:00 Test Item Value Reference Range Interpretation Comments Total Protein (test code = Total 7.7 6.4-8.4 Protein) [facility]2016-07-29 13:36:00 Test Item Value Reference Range Interpretation Comments Calcium Lvl (test code = Calcium Lvl) 8.7 8.5-10.5 [facility]2016-07-29 13:36:00 Test Item Value Reference Range Interpretation Comments Glucose Lvl (test code = Glucose Lvl) 97 70-99 [facility]2016-07-29 13:36:00 Test Item Value Reference Range Interpretation Comments Creatinine Lvl (test code = Creatinine 1.19 0.50-1.40 Lvl) [facility]2016-07-29 13:36:00 Test Item Value Reference Range Interpretation Comments Sodium Lvl (test code = Sodium Lvl) 137 135-145 [id number] 13:36:00 Test Item Value Reference Range Interpretation Comments Hct (test code = Hct) 43.3 42.0-54.0 [id number] 13:36:00 Test Item Value Reference Range Interpretation Comments Hgb (test code = Hgb) 14.5 14.0-18.0 [facility] AND [id number] 13:36:00 Test Item Value Reference Range Interpretation Comments UA RBC (test code = no gt See_Comment [Automa keily message] The UA RBC) system which ge nerated this result transmit keily reference range : <=2. The reference range was not used to interpr et this result as blanco l/abnormal. [facility] AND [id number] 13:36:00 Test Item Value Reference Range Interpretation Comments UA Sq Epi (test code = UA Sq Epi) None Seen [facility] AND [id number] 13:36:00 Test Item Value Reference Range Interpretation Comments UA WBC (test code = no gt See_Comment [Automa keily message] The UA WBC) system which ge nerated this result transmit keily reference range : <=5. The reference range was not used to interpr et this result as blanco l/abnormal. [facility] AND [id number] 13:36:00 Test Item Value Reference Range Interpretation Comments UA Leuk Est (test Negative (11/09/15 8:36 code = UA Leuk Est) AM) [facility] AND [id number] 13:36:00 Test Item Value Reference Range Interpretation Comments UA Nitrite (test code Negative (11/09/15 8:36 = UA Nitrite) AM) [facility] AND [id number] 13:36:00 Test Item Value Reference Range Interpretation Comments UA Blood (test code = Negative (11/09/15 8:36 UA Blood) AM) [facility] AND [id number] 13:36:00 Test Item Value Reference Range Interpretation Comments UA Bili (test code = Negative *NA*(11/09/15 UA Bili) 8:36 AM) [facility] AND [id number] 13:36:00 Test Item Value Reference Range Interpretation Comments UA Ketones (test code = UA Negative mg/dL Ketones) [facility] AND [id number] 13:36:00 Test Item Value Reference Range Interpretation Comments UA Urobilinogen (test code = UA <=1.0 mg/dL 0.1-1.0 Urobilinogen) [facility] AND [id number] 13:36:00 Test Item Value Reference Range Interpretation Comments UA Color (test code = UA Color) Ltyellow [facility] AND [id number] 13:36:00 Test Item Value Reference Range Interpretation Comments UA Protein (test code = UA Negative mg/dL Protein) [facility]2016-07-29 13:36:00 Test Item Value Reference Range Interpretation Comments A/G Ratio (test code = A/G Ratio) 1.1 0.7-1.6 [facility]2016-07-29 13:36:00 Test Item Value Reference Range Interpretation Comments AGAP (test code = AGAP) 11.4 10.0-20.0 [facility]2016-07-29 13:36:00 Test Item Value Reference Range Interpretation Comments B/C Ratio (test code = B/C Ratio) 17 6-25 [facility]2016-07-29 13:36:00 Test Item Value Reference Range Interpretation Comments Globulin (test code = Globulin) 3.7 2.0-4.0 [facility]2016-07-29 13:36:00 Test Item Value Reference Range Interpretation Comments eGFR (test code = eGFR) 64 [facility] AND [id number] 13:36:00 Test Item Value Reference Range Interpretation Comments UA Spec Grav (test code = UA Spec Grav) 1.014 [facility]2016-07-29 13:36:00 Test Item Value Reference Range Interpretation Comments BUN (test code = BUN) 20 7-22 [facility]2016-07-29 13:36:00 Test Item Value Reference Range Interpretation Comments Bili Total (test code = Bili Total) 0.6 0.2-1.3 [facility]2016-07-29 13:36:00 Test Item Value Reference Range Interpretation Comments Alk Phos (test code = Alk Phos) 44 39-136 [facility]2016-07-29 13:36:00 Test Item Value Reference Range Interpretation Comments AST (test code = AST) 32 See_Comment [Auto mated message] The system which ge nerated this result transmit keily reference range : <=37. The reference range was not used to interpr et this result as blanco l/abnormal. [facility]2016-07-29 13:36:00 Test Item Value Reference Range Interpretation Comments ALT (test code = ALT) 30 See_Comment [Auto mated message] The system which ge nerated this result transmit keily reference range : <=65. The reference range was not used to interpr et this result as blanco l/abnormal. [facility]2016-07-29 13:36:00 Test Item Value Reference Range Interpretation Comments Potassium Lvl (test code = Potassium 5.4 3.5-5.1 Lvl) [facility]2016-07-29 13:36:00 Test Item Value Reference Range Interpretation Comments Chloride Lvl (test code = Chloride Lvl) 103 95-109 [facility]2016-07-29 13:36:00 Test Item Value Reference Range Interpretation Comments CO2 (test code = CO2) 28 24-32 [facility]2016-07-29 13:36:00 Test Item Value Reference Range Interpretation Comments Albumin Lvl (test code = Albumin Lvl) 4.0 3.5-5.0 [facility]2016-07-29 13:36:00 Test Item Value Reference Range Interpretation Comments Total Protein (test code = Total 7.7 6.4-8.4 Protein) [facility] [id number] 13:36:00 Test Item Value Reference Range Interpretation Comments UA pH (test code = UA pH) 5.0 5.0-8.0 [facility]2016-07-29 13:36:00 Test Item Value Reference Range Interpretation Comments Calcium Lvl (test code = Calcium Lvl) 8.7 8.5-10.5 [facility]2016-07-29 13:36:00 Test Item Value Reference Range Interpretation Comments Glucose Lvl (test code = Glucose Lvl) 97 70-99 [facility]2016-07-29 13:36:00 Test Item Value Reference Range Interpretation Comments Creatinine Lvl (test code = Creatinine 1.19 0.50-1.40 Lvl) [facility]2016-07-29 13:36:00 Test Item Value Reference Range Interpretation Comments Sodium Lvl (test code = Sodium Lvl) 137 135-145 [id number] 13:36:00 Test Item Value Reference Range Interpretation Comments Hct (test code = Hct) 43.3 42.0-54.0 [id number] 13:36:00 Test Item Value Reference Range Interpretation Comments Hgb (test code = Hgb) 14.5 14.0-18.0 [facility] AND [id number] 13:36:00 Test Item Value Reference Range Interpretation Comments UA RBC (test code = no gt See_Comment [Automa keily message] The UA RBC) system which ge nerated this result transmit keily reference range : <=2. The reference range was not used to interpr et this result as blanco l/abnormal. [facility] AND [id number] 13:36:00 Test Item Value Reference Range Interpretation Comments UA Sq Epi (test code = UA Sq Epi) None Seen [facility] AND [id number] 13:36:00 Test Item Value Reference Range Interpretation Comments UA WBC (test code = no gt See_Comment [Automa keily message] The UA WBC) system which ge nerated this result transmit keily reference range : <=5. The reference range was not used to interpr et this result as blanco l/abnormal. [facility] AND [id number] 13:36:00 Test Item Value Reference Range Interpretation Comments UA Leuk Est (test Negative (11/09/15 8:36 code = UA Leuk Est) AM) [facility] AND [id number] 13:36:00 Test Item Value Reference Range Interpretation Comments UA Glucose (test code = UA Negative mg/dL Glucose) [facility] AND [id number] 13:36:00 Test Item Value Reference Range Interpretation Comments UA Nitrite (test code Negative (11/09/15 8:36 = UA Nitrite) AM) [facility] AND [id number] 13:36:00 Test Item Value Reference Range Interpretation Comments UA Blood (test code = Negative (11/09/15 8:36 UA Blood) AM) [facility] AND [id number] 13:36:00 Test Item Value Reference Range Interpretation Comments UA Bili (test code = Negative *NA*(11/09/15 UA Bili) 8:36 AM) [facility] AND [id number] 13:36:00 Test Item Value Reference Range Interpretation Comments UA Ketones (test code = UA Negative mg/dL Ketones) [facility] AND [id number] 13:36:00 Test Item Value Reference Range Interpretation Comments UA Urobilinogen (test code = UA <=1.0 mg/dL 0.1-1.0 Urobilinogen) [facility] AND [id number] 13:36:00 Test Item Value Reference Range Interpretation Comments UA Color (test code = UA Color) Ltyellow [facility] AND [id number] 13:36:00 Test Item Value Reference Range Interpretation Comments UA Protein (test code = UA Negative mg/dL Protein) [facility] AND [id number] 13:36:00 Test Item Value Reference Range Interpretation Comments UA Spec Grav (test code = UA Spec Grav) 1.014 [facility] AND [id number] 13:36:00 Test Item Value Reference Range Interpretation Comments UA pH (test code = UA pH) 5.0 5.0-8.0 [facility] AND [id number] 13:36:00 Test Item Value Reference Range Interpretation Comments UA Glucose (test code = UA Negative mg/dL Glucose) [facility] AND [id number] 13:36:00 Test Item Value Reference Range Interpretation Comments UA Turbidity (test code = Clear (11/09/15 8:36 UA Turbidity) AM) [facility] AND [id number] 13:36:00 Test Item Value Reference Range Interpretation Comments UA Turbidity (test code = Clear (11/09/15 8:36 UA Turbidity) AM) [facility] [id number] 13:36:00 Test Item Value Reference Range Interpretation Comments A/G Ratio (test code = A/G Ratio) 1.1 0.7-1.6 [facility] [id number] 13:36:00 Test Item Value Reference Range Interpretation Comments AGAP (test code = AGAP) 11.4 10.0-20.0 [facility]
[2022-06-08] MEDS ORDERED: ONDANSETRON 4 MG/2 ML VIAL ONE (10:42)
[2022-06-08] MEDS ORDERED: MORPHINE 4 MG/ML SYR ONE (10:43)
[2022-06-08 10:51] LABS: Absolute Lymphocytes (CBC) 2.4 K/uL (0.7-4.9); Hematocrit 46.9 % (39.6-49.0); MCV 91.2 fL (80-100); MPV 8.9 fL (7.6-11.3); RBC Red Blood Cell Count 5.14 M/uL (4.33-5.43)
[2022-06-08 11:10] LABS: Albumin 4.3 g/dL (3.4-5.0); Bilirubin Direct 0.2 mg/dL (0-0.2); Bilirubin Total 0.8 mg/dL (0.2-1.0); Potassium 4.5 mmol/L (3.5-5.1); Protein, Total 7.9 g/dL (6.4-8.2); Troponin High Sensitivity 11.6 pg/mL (<58.9)
--- NOTE | 2022-06-08 11:12 | RAD REPORT ---
EXAM DESCRIPTION: RADChest Single View06/08/2022 10:54 am CLINICAL HISTORY: CHEST PAIN COMPARISON: Chest Single View dated 2Chest Pa And Lat (2 Views) dated 02/27/2022; Chest Pa A nd Lat (2 Views) dated 02/27/2021; Chest Pa And Lat (2 Views) dated 03/22/2020; Chest Pa And Lat (2 V iews) dated 02/21/2020 TECHNIQUE: Portable AP view of the chest. FINDINGS: The lungs are clear. No pneumothorax or effusion. The cardiomediastinal contours are unrem arkable. Again noted are sequelae of median sternotomy, rib plates, and anterior cervical plating radha dware. IMPRESSION: No acute cardiopulmonary process.
--- NOTE | 2022-06-08 12:06 | RAD REPORT ---
EXAM DESCRIPTION: CT - Angio Aorta For Dissection - 06/08/2022 11:48 am CLINICAL HISTORY: Chest pain. Dizziness. History of hypertension and myocardial infarct COMPARISON: Chest radiograph of earlier same day TECHNIQUE: Dynamically enhanced 3 mm thick images of the chest, abdomen, and upper pelvis were obtai hayden during administration of approximately 100mL Isovue 370 IV contrast. Sagittal, coronal, and maxim al intensity projection reconstruction images were generated and reviewed. Exam utilizes a protocol t o evaluate entire course of the aorta. All CT scans are performed using dose optimization technique as appropriate and may include automated exposure control or mA/KV adjustment according to patient size. FINDINGS: Aorta is normal in diameter with no evidence of dissection or other acute aortic findings. Reconstruction images show no significant findings. Pulmonary arteries are normal in caliber, without evidence of filling defects allowing for limitation of aortic contrast timing, suboptimal for branch pulmonary artery evaluation. No mass or infiltrate in the lung parenchyma. No pleural thickening, pleural effusion or pneumothorax . The heart is borderline enlarged. No abnormal mediastinal or hilar mass or lymphadenopathy seen. No a bnormal axillary adenopathy. Sequelae of median sternotomy and rib plating. Linear soft tissue thickening extending from the xiphi sternum, with a nodular irregular soft tissue density along the upper midline abdominal wall, measuri ng 2.5 x 2.6 centimeter, nonspecific. Celiac, SMA and renal arteries show no suspicious findings. Solid abdominal viscera and bowel show no significant findings. No mass or abnormal lymphadenopathy. Incidentally noted descending and sigmoid colon diverticulosis. IMPRESSION: No acute findings. No evidence of dissection for aneurysmal dilation. Nonspecific soft tissue mass along the anterior upper abdominal wall in the midline, could reflect fo maude scarring in the setting of prior surgical intervention. Please correlate clinically. Other incidental findings, as above.
--- NOTE | 2022-06-08 13:29 | EDPHYS ---
Physician Documentation [facility] Name: Blaise Kwong Age: 71 yrs Sex: Male : 1950 Arrival Date: 06/08/2022 Time: 10:18 Bed 17 Private MD: Waldo Song V ED Physician Petr Blanchard HPI: 06/08 11:02 This 71 yrs old Male presents to ER via Ambulatory with complaints of Chest Pain, Back rn Pain, Dizziness, Headache. 11:02 The patient or guardian reports chest pain that is located primarily in the chest rn diffusely. Onset: just prior to arrival. The pain radiates to back. Associated signs and symptoms: Pertinent positives: dizziness, Pertinent negatives: abdominal pain, lower extremity pain, lower extremity swelling, palpitations, shortness of breath, syncope, vomiting. The chest pain is described as aching, a heaviness. Duration: The patient or guardian reports a single episode, that is still ongoing. Modifying factors: The symptoms are alleviated by nothing. the symptoms are aggravated by nothing. Severity of pain: At its worst the pain was moderate in the emergency department the pain is unchanged. The patient has not experienced similar symptoms in the past. The patient has not recently seen a physician. Pt reports chest pain and back pain that began Prior to arrival, no trauma, does not feel ill, has had WA with stent in past. No cough. Also radiates to neck and assoc with headache. . Historical: - Allergies: 10:24 No Known Allergies; aa5 - Home Meds: 10:34 metoprolol succinate 25 mg oral Tb24 [Active]; atorvastatin 40 mg oral tab [Active]; aa5 Xarelto oral [Active]; Aspirin Oral [Active]; - PMHx: 10:24 Myocardial infarction; Hypertensive disorder; aa5 - PSHx: 10:24 Sternum repair; heart stents; Heart Valve Repair; Hernia Repair; aa5 - Immunization history:: Adult Immunizations up to date. - Family history:: not pertinent. - Social history:: Smoking status: Patient denies any tobacco usage or history of. - Hospitalizations: : No recent hospitalization is reported. ROS: 11:02 Constitutional: Negative for fever, chills, and weight loss, Eyes: Negative for injury, rn pain, redness, and discharge, Neck: Negative for injury, pain, and swelling, Cardiovascular: + chest pain Respiratory: Negative for shortness of breath, cough, wheezing, and pleuritic chest pain, Abdomen/GI: Negative for abdominal pain, nausea, vomiting, diarrhea, and constipation, Back: + upper back pain MS/Extremity: Negative for injury and deformity, Skin: Negative for injury, rash, and discoloration, Neuro: + headache and dizziness Exam: 11:02 Constitutional: This is a well developed, well nourished patient who is awake, alert, rn and in no acute distress. Head/Face: Normocephalic, atraumatic. Cardiovascular: Regular rate and rhythm. No pulse deficits. Respiratory: No increased work of breathing, no retractions or nasal flaring. Abdomen/GI: Soft, non-tender Skin: Warm, dry MS/ Extremity: Pulses equal, no cyanosis. Neuro: Awake and alert, GCS 15 11:13 ECG was reviewed by the Attending Physician. rn Vital Signs: 10:20 BP 142 / 67; Pulse 57; Resp 18; Pulse Ox 99% ; ko1 10:24 BP 169 / 70; Pulse 63; Resp 18 S; Temp 98.3(O); Pulse Ox 100% on R/A; Weight 84.37 kg aa5 (R); Height 5 ft. 10 in. (177.80 cm) (R); 11:55 BP 192 / 56; Pulse 65; Resp 18; Pulse Ox 98% ; ko1 12:34 BP 169 / 78; Pulse 56; Resp 16; Pulse Ox 99% ; ko1 10:24 Body Mass Index 26.69 (84.37 kg, 177.80 cm) aa5 MDM: 10:22 Patient medically screened. rn 13:24 Differential diagnosis: acute myocardial infarction, acute pericarditis, anxiety, rn coronary artery disease chest wall pain, costochondritis, esophagitis, gastritis, pleurisy, pneumonia, pneumothorax, pulmonary embolus, stable angina, thoracic aortic disection, unstable angina. HEART Score: History: Moderately Suspicious (1), ECG: Non specific repolarization disturbance / LBTB / PM (1), Age: > or = 65 years (2), Risk Factors: > or = 3 Risk factors for atherosclerotic disease (2), Troponin: < or = 1 x Normal Limit (0), Total Score = 6. The patient was given aspirin in the Emergency Department. Data reviewed: vital signs, nurses notes, lab test result(s), EKG, radiologic studies, CT scan, and as a result, I will admit patient. Consideration of Admission/Observation Patient was admitted/placed on observation. Escalation of care including admission/observation considered. Management of patient was discussed with the following: Hospitalist: Management and case discussed with PCP. I considered the following discharge prescriptions or medication management in the emergency department Medications were administered in the Emergency Department. See MAR. Independent interpretation of the following test(s) in the Emergency Department EKG: See my EKG interpretation above X-Ray: My interpretation is Pt with neg ct aorta, trop neg, ECG without ST elevation, has hx of WA with stent. Will admit for further care and evaluation. . Counseling: I had a detailed discussion with the patient and/or guardian regarding: the historical points, exam findings, and any diagnostic results supporting the discharge/admit diagnosis, lab results, radiology results, the need for further work-up and treatment in the hospital. Response to treatment: the patient's symptoms have mildly improved after treatment, and as a result, I will admit patient. 06/08 10:34 Order name: Basic Metabolic Panel rn 06/08 10:34 Order name: CBC with Diff rn 06/08 10:34 Order name: LFT's rn 06/08 10:34 Order name: NT PRO-BNP rn 06/08 10:34 Order name: PT-INR rn 06/08 10:34 Order name: Troponin HS rn 06/08 10:52 Order name: CBC with Automated Diff; Complete Time: 11:50 EDNH 06/08 10:55 Order name: Protime (+INR); Complete Time: 11:50 EDNH 06/08 11:10 Order name: Basic Metabolic Panel; Complete Time: 11:50 EDNH 06/08 11:10 Order name: Liver (Hepatic) Function; Complete Time: 11:50 EDNH 06/08 11:10 Order name: Troponin High Sensitivity; Complete Time: 11:50 EDNH 06/08 11:10 Order name: NT PRO-BNP; Complete Time: 11:50 [facility] 06/08 13:24 Order name: SARS RAPID rn 06/08 13:56 Order name: SARS-COV-2 Antigen Rapid [facility] 06/08 10:34 Order name: XRAY Chest (1 view) rn 06/08 10:34 Order name: EKG; Complete Time: 10:35 rn 06/08 10:34 Order name: Cardiac monitoring; Complete Time: 10:35 rn 06/08 10:34 Order name: EKG - Nurse/Tech; Complete Time: 10:35 rn 06/08 10:34 Order name: IV Saline Lock; Complete Time: 10:35 rn 06/08 10:34 Order name: Labs collected and sent; Complete Time: 10:35 rn 06/08 10:34 Order name: O2 Per Protocol; Complete Time: 10:35 rn 06/08 10:34 Order name: O2 Sat Monitoring; Complete Time: 10:35 rn 06/08 10:34 Order name: CT Aorta for Dissection rn 06/08 11:13 Order name: RAD; Complete Time: 11:50 EDMS 06/08 12:06 Order name: CT; Complete Time: 12:31 EDMS EC:13 Rate is 60 beats/min. Rhythm is regular. QRS [place] is Normal. VT interval is normal. QRS rn interval is normal. QT interval is normal. No Q waves. T waves are Normal. No ST changes noted. Clinical impression: NSR w/ Non-specific ST/T Changes. Interpreted by me. Reviewed by me. Administered Medications: 10:44 Drug: Zofran (Ondansetron) 4 mg Route: IVP; Site: right forearm; ko1 10:49 Drug: morphine 4 mg Route: IVP; Infused Over: 4 mins; Site: right forearm; ko1 13:44 Drug: Aspirin Chewable Tablet 324 mg Route: PO; ko1 Disposition Summary: 06/08/22 13:29 Hospitalization Ordered Hospitalization Status: Observation rn Provider: Waldo Song rn Location: Telemetry/MedSurg (observation) rn Condition: Stable rn Problem: new rn Symptoms: have improved rn Bed/Room Type: Standard rn Room Assignment: 403(06/08/22 14:33) eb Diagnosis - Chest pain, unspecified rn Forms: - Medication Reconciliation Form rn - SBAR form rn Signatures: Dispatcher [employer] EDMS Petr Blanchard MD MD rn Calderon, Audri RN RN aa5 Patricia Hyman Kathy RN RN ko1 Corrections: (The following items were deleted from the chart) 14:33 13:29 rn eb
--- NOTE | 2022-06-08 13:29 | ER ---
Nurse's Notes [facility] Name: Blaise Kwong Age: 71 yrs Sex: Male : 1950 Arrival Date: 06/08/2022 Time: 10:18 Bed 17 Private MD: Waldo Song V Diagnosis: Chest pain, unspecified Presentation: 06/08 10:24 Chief complaint: Patient states: "I was just at [employer] when I started having aa5 pain to my back and then it started going to my chest". Pt also reports dizziness and headache. Appears uncomfortable during triage. Pt's states "he just had a colonoscopy on Thursday so he has been off his blood thinners (Xarelto and ASA) since the ". 10:24 Coronavirus screen: At this time, the client does not indicate any symptoms associated aa5 with coronavirus-19. Ebola Screen: Patient denies travel to an Ebola-affected area in the 21 days before illness onset. Initial Sepsis Screen: Does the patient meet any 2 criteria? No. Patient's initial sepsis screen is negative. Does the patient have a suspected source of infection? No. Patient's initial sepsis screen is negative. Risk Assessment: Do you want to hurt yourself or someone else? Patient reports no desire to harm self or others. Onset of symptoms was June 08, 2022. 10:24 Acuity: DELISA 2 aa5 10:24 Method Of Arrival: Ambulatory aa5 Historical: - Allergies: 10:24 No Known Allergies; aa5 - Home Meds: 10:34 metoprolol succinate 25 mg oral Tb24 [Active]; atorvastatin 40 mg oral tab [Active]; aa5 Xarelto oral [Active]; Aspirin Oral [Active]; - PMHx: 10:24 Myocardial infarction; Hypertensive disorder; aa5 - PSHx: 10:24 Sternum repair; heart stents; Heart Valve Repair; Hernia Repair; aa5 - Immunization history:: Adult Immunizations up to date. - Family history:: not pertinent. - Social history:: Smoking status: Patient denies any tobacco usage or history of. - Hospitalizations: : No recent hospitalization is reported. Screenin:20 [facility] ED Fall Risk Assessment (Adult) History of falling in the last 3 months, ko1 including since admission No falls in past 3 months (0 pts) Confusion or Disorientation No (0 pts) Intoxicated or Sedated No (0 pts) Impaired Gait No (0 pts) Mobility Assist Device Used No (0 pt) Altered Elimination No (0 pt) Score/Fall Risk Level 0 - 2 = Low Risk Oriented to surroundings, Maintained a safe environment, Educated pt \\T\\ family on fall prevention, incl call for assistance when getting out of bed, Assessed \\T\\ reinforced patient's understanding of fall precautions, Provided non-skid footwear, Hourly rounding (assess needs \\T\\ fall precautionary measures) done, Used ambulatory aids as needed (educated on \\T\\ assisted with), Used gait belt as appropriate. Abuse screen: Denies threats or abuse. Denies injuries from another. Nutritional screening: No deficits noted. Tuberculosis screening: No symptoms or risk factors identified. Assessment: 10:20 General: Appears in no apparent distress. uncomfortable, Behavior is calm, cooperative, ko1 appropriate for age. Pain: Pain radiates to chest into the neck and back Pain began suddenly. Neuro: No deficits noted. Cardiovascular: Reports chest pain, lightheadedness. Respiratory: No deficits noted. GI: No deficits noted. : No deficits noted. EENT: No deficits noted. Derm: No deficits noted. Musculoskeletal: No deficits noted. Vital Signs: 10:20 BP 142 / 67; Pulse 57; Resp 18; Pulse Ox 99% ; ko1 10:24 BP 169 / 70; Pulse 63; Resp 18 S; Temp 98.3(O); Pulse Ox 100% on R/A; Weight 84.37 kg aa5 (R); Height 5 ft. 10 in. (177.80 cm) (R); 11:55 BP 192 / 56; Pulse 65; Resp 18; Pulse Ox 98% ; ko1 12:34 BP 169 / 78; Pulse 56; Resp 16; Pulse Ox 99% ; ko1 10:24 Body Mass Index 26.69 (84.37 kg, 177.80 cm) aa5 ED Course: 10:18 Patient arrived in ED. rg4 10:18 Waldo Song MD is Private Physician. rg4 10:20 Patient has correct armband on for positive identification. Placed in gown. Bed in low ko1 position. Call light in reach. Side rails up X 1. Client placed on continuous cardiac and pulse oximetry monitoring. NIBP monitoring applied. site monitor on. 10:20 No provider procedures requiring assistance completed. Patient maintains SpO2 ko1 saturation greater than 95% on room air. 10:22 Petr Blanchard MD is Attending Physician. rn 10:24 Paty Giraldo, RN is Primary Nurse. ko1 10:24 Arm band placed on Patient placed in an exam room, on a stretcher. aa5 10:32 Triage completed. aa5 10:44 Basic Metabolic Panel Sent. ko1 10:44 CBC with Diff Sent. ko1 10:44 LFT's Sent. ko1 10:44 NT PRO-BNP Sent. ko1 10:44 PT-INR Sent. ko1 10:44 Troponin HS Sent. ko1 10:46 Inserted saline lock: 20 gauge in right forearm, using aseptic technique. Blood rs5 collected. 11:54 Patient moved back from CT. ko1 13:29 Waldo Song MD is Hospitalizing Provider. rn 13:44 SARS RAPID Sent. ko1 15:02 Report given to Louise. ko1 15:02 Patient admitted, IV remains in place. ko1 Administered Medications: 10:44 Drug: Zofran (Ondansetron) 4 mg Route: IVP; Site: right forearm; ko1 10:49 Drug: morphine 4 mg Route: IVP; Infused Over: 4 mins; Site: right forearm; ko1 13:44 Drug: Aspirin Chewable Tablet 324 mg Route: PO; ko1 Medication: 10:20 VIS not applicable for this client. ko1 Outcome: 13:29 Decision to Hospitalize by Provider. rn 15:02 Admitted to Tele accompanied by tech, family with patient, via wheelchair, room 403, ko1 with chart, Report called to Louise 15:02 Condition: improved 15:02 Instructed on the need for admit. 15:26 Patient left the ED. ko1 Signatures: Petr Blanchard MD MD rn Calderon, Audri RN RN [email or web address] Alta Figueredo rg4 Paty Giraldo, RN RN [email or web address] Nikko Isaac rs5 Corrections: (The following items were deleted from the chart) 10:30 10:27 Arm band placed on Patient placed in an exam room, on a stretcher, aa5 aa5 10:33 10:24 Chief complaint: Patient states: "I was just at [employer] when I started aa5 having pain to my back and then it started going to my chest". Pt also reports dizziness and headache. Appears uncomfortable during triage. aa5
[2022-06-08] MEDS ORDERED: ASPIRIN 81 MG CHEWABLE TABLET ONE (13:39)
[2022-06-08 13:56] LABS: SARS-CoV-2 Antigen Rapid Res Negative (Negative)
[2022-06-08 15:31] VITALS: BMI 26.6
[2022-06-08] MEDS ORDERED: ONDANSETRON 4 MG/2 ML VIAL IV PRN (16:05)
[2022-06-08] MEDS ORDERED: MORPHINE 4 MG/ML SYR IV PRN (16:05)
--- NOTE | 2022-06-08 16:55 | P.HP ---
Certification for Inpatient Patient admitted to: Observation With expected LOS: <2 Midnights Patient will require the following post-hospital care: None Practitioner: I am a practitioner with admitting privileges, knowledge of patient current condition, hospital course, and medical plan of care. Services: Services provided to patient in accordance with Admission requirements found in Title 42 Section 412.3 of the Code of Federal Regulations Patient History Date of Service: 06/08/22 Reason for admission: Chest pain rule out acute coronary syndrome History of Present Illness: Patient is a 71-year-old gentleman presents to the hospital with chest discomfort. Patient follows up with Dr. Song as his PCP. Patient states that he was at [employer] when he started having this pain in the sternal region. It spread to his abdomen into the back. He believes that went above his face. He describes it more like a pressure sensation. Initially it left him incapacitated. He started feeling better shortly after that and the family brought him to the emergency room. He stated that the pain started going away completely in the emergency room. He has been having issues with an area underneath his sternum since he had his mitral valve repaired. He said initially he has some drainage. That has since resolved. Chest pain is cleared. Patient will be admitted to the hospital for further evaluation. Allergies No Known Allergies Allergy (Unverified 06/08/22 15:49) Home Medications: Aspirin [Aspirin EC 81 MG] 81 mg PO DAILY 06/08/22 Atorvastatin Calcium [Lipitor] 40 mg PO BEDTIME 06/08/22 Metoprolol Succinate 25 mg PO DAILY 06/08/22 Rivaroxaban [Xarelto] 2.5 mg PO BID 06/08/22 Ubidecarenone [Co Q-10] 200 mg PO BEDTIME 06/08/22 Vit C/Ascorb Sod/Multivit-Min [Emergen-C 500 mg Chewable Tab] 500 mg PO DAILY 06/08/22 Vit D3/Vit K2/Calc Frutoborate [Move Free Whisu-Ltgslf-I7-D3] 4,000 mg PO DAILY 06/08/22 - Past Medical/Surgical History Diabetic: No Past Medical History: Patient denies medical history -: heart stent 1999 -: hernia repair 2021 -: heart valve repair 2019 -: sternal repair 2020 & 2021 - Family History Father Family History: Reviewed- Non-Contributory - Social History Smoking Status: Former smoker Alcohol use: No CD- Drugs: No Place of Residence: Home Review of Systems 10-point ROS is otherwise unremarkable Physical Examination - Vital Signs Temperature: 96.8 F Blood Pressure: 138/64 Pulse: 55 Respirations: 16 Pulse Ox (%): 97 - Physical Exam General: Alert, In no apparent distress, Oriented x3 HEENT: Atraumatic, PERRLA, Mucous membr. moist/pink, EOMI, Sclerae nonicteric Neck: Supple, 2+ carotid pulse no bruit, No LAD, Without JVD or thyroid abnormality Respiratory: Clear to auscultation bilaterally, Normal air movement Cardiovascular: Regular rate/rhythm, Normal S1 S2, Systolic murmur Gastrointestinal: Normal bowel sounds, Soft and benign, Non-distended, No tenderness Musculoskeletal: No tenderness Integumentary: Other ( Area underneath his sternal region that is open but with no drainage; he appears to have some scar tissue in that area) Neurological: Normal gait, Normal speech, Normal strength at 5/5 x4 extr, Normal tone, Normal affect Lymphatics: No axilla or inguinal lymphadenopathy - Studies Laboratory Data (last 24 hrs) 06/08/22 10:40: PT 11.0, INR 1.00 06/08/22 10:40: WBC 9.10, Hgb 15.5, Hct 46.9, Plt Count 224 06/08/22 10:40: Sodium 136, Potassium 4.5, BUN 17, Creatinine 1.19, Glucose 97, Total Bilirubin 0.8, AST 29, ALT 38, Alkaline Phosphatase 54 Assessment & Plan - Problems (Diagnosis) (1) Chest pain, rule out acute myocardial infarction Current Visit: Yes Status: Acute (2) CAD (coronary artery disease) Current Visit: Yes Status: Acute (3) Valvular heart disease Current Visit: Yes Status: Acute - Plan -High-sensitivity troponin -Cardiology consultation -possibly echocardiogram and stress test pending cardiology recommendation -Repeat EKG -Work-up for other etiologies of cardiac chest pain if troponins remain negative -Lipid profile -Surgeon/President regarding modifying risk for cardiac disease Discharge Plan: Home Plan to discharge in: 24 Hours - Advance Directives Does patient have a Living Will: Yes Does patient have a Durable POA for Healthcare: Yes - Code Status/Comfort Care Code Status Assessed: Yes Code Status: Full Code Critical Care: No Time Spent Managing PTS Care (In Minutes): 45
[2022-06-09] MEDS ORDERED: NITROGLYCERIN 0.4 MG/TAB SL PRN (00:15)
[2022-06-09 05:46] LABS: Hematocrit 40.7 % (39.6-49.0); Lymphocytes % 22.3 % (15.3-44.8); MCV 90.7 fL (80-100); MPV 8.9 fL (7.6-11.3); RBC Red Blood Cell Count 4.49 M/uL (4.33-5.43)
[2022-06-09 06:05] LABS: Potassium 4.3 mmol/L (3.5-5.1)
[2022-06-09 06:23] LABS: Troponin High Sensitivity 74.6 pg/mL (<58.9)
[2022-06-09] MEDS: ASPIRIN EC 81 MG TAB PO SCH (07:57)
[2022-06-09] MEDS: METOPROLOL XL 25 MG TAB PO SCH (08:24)
[2022-06-09] MEDS ORDERED: RIVAROXABAN 10 MG TABLET PO SCH (09:00)
[2022-06-09] MEDS ORDERED: ASPIRIN EC 81 MG TAB PO SCH (09:00)
--- NOTE | 2022-06-09 18:39 | EKG ---
Test Date: 2022-06-08 Test Time: 23:33:59 Business Objects Architect: ESTEVAN MEASUREMENT RESULTS: Intervals: Rate: 54 [place]: 202 QRSD: 96 QT: 438 QTc: 415 [place]: P: 65 [place]: 202 QRS: 45 T: 12 INTERPRETIVE STATEMENTS: Sinus bradycardia Septal infarct, age undetermined Abnormal ECG Compared to ECG 06/08/2022 10:26:52 Sinus rhythm no longer present Myocardial infarct finding still present Electronically Signed On 06-09-22 18:38:16 MIDWIFE PRACTITIONER by Bayron Olivo
--- NOTE | 2022-06-09 18:42 | EKG ---
Test Date: 2022-06-08 Test Time: 10:26:52 Eyeglass Lens Cutter: JOSE MEASUREMENT RESULTS: Intervals: Rate: 60 FL: 176 QRSD: 94 QT: 402 QTc: 402 [place]: P: 21 FL: 176 QRS: 14 T: 30 INTERPRETIVE STATEMENTS: Normal sinus rhythm Septal infarct, age undetermined Abnormal ECG Compared to ECG 03/02/2010 21:42:19 Myocardial infarct finding now present Electronically Signed On 06-09-22 18:39:57 HIGH SCHOOL HISTORY TEACHER by Bayron Olivo
[2022-06-09] MEDS: ENOXAPARIN 80 MG/0.8 ML SQ SCH (20:39)
[2022-06-09] MEDS: ATORVASTATIN 40 MG TAB PO SCH (20:41)
--- NOTE | 2022-06-09 21:37 | P.PN ---
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 HE HAS HAD CHEST PAIN OFF AND ON. THIS TIME THE PAIN WAS RETROSTERNAL AND HAD RADIATION TO BACK AND NECK. HE NEEDS ANGIOGRAM AND WILL WAIT 48 HOURS AFTER XARELTO. HE IS NOW ON LOVENOX UNTIL CAH HE HIS HIGH RISK AND HAS CLASSICAL CORONARY SYMPTOMS. Review of Systems 10-point ROS is otherwise unremarkable Physical Examination - Vital Signs Temperature: 96.9 F Blood Pressure: 177/72 Pulse: 57 Respirations: 16 Pulse Ox (%): 99 - Physical Exam General: Alert, In no apparent distress HEENT: Atraumatic, PERRLA, EOMI Neck: Supple, JVD not distended Respiratory: Clear to auscultation bilaterally, Normal air movement, Other (CHEST WLLL SURGERY. CABG, ) Cardiovascular: Regular rate/rhythm, Normal S1 S2 Gastrointestinal: Normal bowel sounds, No tenderness Musculoskeletal: No tenderness Integumentary: No rashes Neurological: Normal speech, Normal tone, Normal affect Lymphatics: No axilla or inguinal lymphadenopathy - Studies Laboratory Data (last 24 hrs) 06/09/22 05:17: Sodium 137, Potassium 4.3, BUN 20 H, Creatinine 1.02, Glucose 109 H 06/09/22 05:17: WBC 8.80, Hgb 13.6 D, Hct 40.7, Plt Count 193 Medications List Reviewed: Yes Assessment And Plan - Current Problems (Diagnosis) (1) Chest pain Current Visit: Yes Status: Acute Plan: DR. NUNEZ TO DO CATH. LOVENOX SC BID PROGOSIS FAIR. (2) CAD (coronary artery disease) Current Visit: Yes Status: Chronic Qualifiers: Coronary Disease-Associated Artery/Lesion type: bypass graft Associated angina: with stable angina
--- NOTE | 2022-06-10 00:53 | CON ---
Date of Consultation: 06/09/2022 Reason For Consultation: Chest pain and elevated troponin. History Of Present Illness: 71-year-old male, comes in with the chest pain. He has a past medical h istory of coronary artery disease, status post cardiac stent placement, dyslipidemia. He has one of his heart valves repaired back in 2019, comes in with chest pain, retrosternal, radiates to the neck and the left shoulder, has been more frequent and the initial troponin was negative. Second troponin was slightly elevated. He is chest pain free at the present time. Past Medical History: As outlined above in the HPI. Medications: Refer to reconciliation sheet for detailed list. Medications were reviewed. Allergies: NO KNOWN DRUG ALLERGIES. Family History: No premature coronary artery disease or cancer. Social History: Does not smoke or drink. Does not use any drugs. Review of Systems: All systems reviewed and they were negative except for mentioned in HPI. Physical Examination: Vital Signs: Reviewed. Head and Neck: Pupils are equal, reactive to light. Intact eye movements. No JVD. No cervical lym phadenopathy. Neck is supple. Thyroid is not enlarged. Lungs: Clear to auscultation bilaterally. No rhonchi, wheezing, or crackles. No accessory muscle u se. Heart: Regular rate and rhythm. No extra sounds. Abdomen: Soft, nontender. Bowel sounds positive. No organomegaly. No masses or hernia. No rigidi ty or rebound. Extremities: No edema, clubbing, or cyanosis. Intact pulses. Skin: No rash. Neuro: Alert, awake, oriented x3. No acute focal deficits appreciated. Investigations: BUN 20, creatinine 1.02. Troponin 74.6. Assessment And Recommendation: 1.Chest pain with positive troponin suggestive of skd-PE-iidiqeatl myocardial infarction. I plan to do cardiac catheterization on him today, but he received Xarelto. Discontinue Xarelto. Start him o n Lovenox 1 mg/kg subcu q.12 hours and plan for coronary angiogram on Thursday. 2.Dyslipidemia. Continue Lipitor. 3.Hypertension. Blood pressure is controlled. SR/MODL Voice ID: [id number] Report ID: [id number]
[2022-06-10] MEDS: ENOXAPARIN 80 MG/0.8 ML SQ SCH ×2 (08:35→21:00)
[2022-06-10] MEDS: METOPROLOL XL 25 MG TAB PO SCH (08:36)
[2022-06-10] MEDS: ASPIRIN EC 81 MG TAB PO SCH (08:38)
--- NOTE | 2022-06-10 12:51 | EKG ---
Test Date: 2022-06-09 Test Time: 11:24:54 Industrial Mechanic: BRIT MEASUREMENT RESULTS: Intervals: Rate: 57 DC: 166 QRSD: 92 QT: 430 QTc: 418 [place]: P: 31 DC: 166 QRS: 36 T: 25 INTERPRETIVE STATEMENTS: Sinus bradycardia Septal infarct, age undetermined Abnormal ECG Compared to ECG 06/08/2022 23:33:59 No significant changes Electronically Signed On 06-10-22 12:49:26 WATCH COMMANDER by Bayron Olivo
--- NOTE | 2022-06-10 18:53 | PN ---
Date of Progress Note: 06/10/2022 Subjective: The patient was seen by bedside. Clinically doing well. No further chest pain. Review of Systems: No chest pain, shortness of breath, orthopnea, cough. No nausea, vomiting, diarrhea. No abdominal p ain. No dysuria, polyuria, or urinary urgency. No skin rash, headache. All other systems reviewed and they were negative. Physical Examination: Vital Signs: Reviewed. Head and Neck: Pupils are equal, reactive to light. Intact eye movements. No JVD. No cervical lym phadenopathy. Neck is supple. Thyroid is not enlarged. Lungs: Clear to auscultation bilaterally. No rhonchi, wheezing, or crackles. No accessory muscle u se. Heart: Regular rate and rhythm. No extra sounds. Abdomen: Soft, nontender. Bowel sounds positive. No organomegaly. No masses or hernia. No rigidi ty or rebound. Extremities: No edema, clubbing, or cyanosis. Intact pulses. Skin: No rash. Neurologic: Alert, awake, oriented x3. No acute focal deficits appreciated. Investigations: BUN 20, creatinine 1.02. Assessment And Recommendations: 1.Non-ST elevation myocardial infarction. Keep him n.p.o. past midnight and plan for coronary angio gram tomorrow morning. He is off the Xarelto. 2.Dyslipidemia. Continue statin. SR/MODL Voice ID: [id number] Report ID: [id number]
[2022-06-10] MEDS: ATORVASTATIN 40 MG TAB PO SCH (21:06)
--- NOTE | 2022-06-10 21:36 | P.PN ---
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 HE HAS HAD CHEST PAIN OFF AND ON. THIS TIME THE PAIN WAS RETROSTERNAL AND HAD RADIATION TO BACK AND NECK. HE NEEDS ANGIOGRAM AND WILL WAIT 48 HOURS AFTER XARELTO. HE IS NOW ON LOVENOX UNTIL CAH HE HIS HIGH RISK AND HAS CLASSICAL CORONARY SYMPTOMS. HE SLEPT WELL, HE SAYS WITH BLOOD THINNER INJECTIONS HE HAS FELT WELL ANDHAS NO CHEST PAIN. Review of Systems 10-point ROS is otherwise unremarkable Physical Examination - Vital Signs Temperature: 97.3 F Blood Pressure: 158/68 Pulse: 62 Respirations: 17 Pulse Ox (%): 99 - Physical Exam General: In no apparent distress, Oriented x3 HEENT: Atraumatic, PERRLA, EOMI Neck: Supple, JVD not distended Respiratory: Clear to auscultation bilaterally, Normal air movement Cardiovascular: Regular rate/rhythm, Normal S1 S2 Gastrointestinal: Normal bowel sounds, No tenderness Musculoskeletal: No tenderness Integumentary: No rashes Neurological: Normal speech, Normal tone, Normal affect Lymphatics: No axilla or inguinal lymphadenopathy - Studies Medications List Reviewed: Yes Assessment And Plan - Current Problems (Diagnosis) (1) Chest pain Current Visit: Yes Status: Acute Plan: DR. NUNEZ TO DO CATH. LOVENOX SC BID PROGOSIS FAIR. CATH IN AM. I REMINDED NURSE TO KEEP NPO AND STOP LOVENOX IF CATH IN AM. (2) CAD (coronary artery disease) Current Visit: Yes Status: Chronic Qualifiers: Coronary Disease-Associated Artery/Lesion type: bypass graft Associated angina: with stable angina
[2022-06-11] MEDS: METOPROLOL XL 25 MG TAB PO SCH (05:34)
[2022-06-11] MEDS: ASPIRIN EC 81 MG TAB PO SCH (05:34)
[2022-06-11] MEDS: ENOXAPARIN 80 MG/0.8 ML SQ SCH (07:43)
[2022-06-11] MEDS ORDERED: LIDOCAINE 1% 20 ML MDV ONE (10:23)
[2022-06-11] MEDS ORDERED: HEPA 1000U/500MLS 2,000 UNIT/1,000 ML BAG IV ONE (10:23)
[2022-06-11] MEDS ORDERED: MIDAZOLAM HCL 2 MG/2 ML INJ ONE (10:24)
[2022-06-11] MEDS ORDERED: FENTANYL CITR 100 MCG/2 ML ONE (10:24)
[2022-06-11] MEDS ORDERED: ATROPINE SULF 1 MG/10 ML SYR IV ONE (10:25)
[2022-06-11] MEDS ORDERED: TICAGRELOR 90 MG TABLET PO ONE (10:25)
[2022-06-11] MEDS ORDERED: CLOPIDOGREL 75 MG TABLET ONE (10:25)
[2022-06-11] MEDS ORDERED: ASPIRIN 325 MG TAB ONE (10:25)
[2022-06-11] MEDS ORDERED: HEPARIN 5000 UNIT/ML 1 ML VIAL ONE (10:25)
[2022-06-11] MEDS ORDERED: HEPARIN 10,000 UNIT/10 ML VIAL IV ONE (10:25)
[2022-06-11] MEDS ORDERED: VERAPAMIL HCL 10 MG/4 ML VIAL IV ONE (10:25)
[2022-06-11] MEDS ORDERED: NA CHLORIDE 0.9% 500 ML ONE (11:02)
[2022-06-11 15:19] VITALS: O2SAT 99
[2022-06-11 16:09] VITALS: BP 142/63; TEMP 97.3
--- NOTE | 2022-06-11 18:25 | PN ---
Date of Progress Note: 06/11/2022 Subjective: Seen by bedside, doing well. No further chest pain. Review of Systems: No chest pain, shortness of breath, orthopnea, cough, nausea, vomiting, or diarrhea. All other syste ms reviewed and they were negative. Physical Examination: Vital Signs: Reviewed. Head And Neck: Pupils are equal and reactive to light. Intact eye movements. No JVD. No cervical lymphadenopathy. Neck is supple. Thyroid is not enlarged. Lungs: Clear to auscultation bilaterally. No rhonchi, wheezing, or crackles. No accessory muscle u se. Heart: Regular rate and rhythm. No extra sounds. Abdomen: Soft, nontender. Bowel sounds positive. No organomegaly. No masses or hernia. No rigidi ty or rebound. Extremities: No edema, clubbing, or cyanosis. Intact pulses. Skin: No rash. Neurologic: Alert, awake, and oriented x3. No acute focal deficits appreciated. Investigation: Labs reviewed. Assessment/recommendation: 1.Non-ST elevation myocardial infarction. He is n.p.o. We will plan for coronary angiogram today a nd PCI as indicated. 2.Dyslipidemia. Continue Lipitor 40 mg. 3.Hypertension. Blood pressure is controlled. SR/MODL Voice ID: [id number] Report ID: [id number]
--- NOTE | 2022-06-11 21:37 | P.DS ---
Admission Date: 06/09/22 Discharge Date: 06/11/22 Disposition: ROUTINE DISCHARGE Reason for Admission: Chest pain rule out acute coronary syndrome - Problems (1) Chest pain Status: Acute (2) CAD (coronary artery disease) Status: Chronic Qualifiers: Coronary Disease-Associated Artery/Lesion type: bypass graft Associated angina: with stable angina Hospital Course: YULI HAD CATH TODAY. HE NEEDED ONE STENT AND WAS STABLE TO GO HOME ON MEDS PER DR. NUNEZ. HE ORDERED ASPIRIN, PLAVIX AND XARELTO TO CONTINUE FOR A FIB HE WAS ON BEFORE. Vital Signs/Physical Exam: Temp Pulse Resp BP Pulse Ox 97.3 F 61 16 142/63 H 96 06/11/22 16:00 06/11/22 16:00 06/11/22 16:00 06/11/22 16:00 06/11/22 16:00 Laboratory Data at Discharge: WBC 8.80 K/uL (4.3-10.9) 06/09/22 05:17 Hgb 13.6 g/dL (13.6-17.9) D 06/09/22 05:17 Hct 40.7 % (39.6-49.0) 06/09/22 05:17 Plt Count 193 K/uL (152-406) 06/09/22 05:17 PT 11.0 SECONDS (9.5-12.5) 06/08/22 10:40 INR 1.00 06/08/22 10:40 Sodium 137 mmol/L (136-145) 06/09/22 05:17 Potassium 4.3 mmol/L (3.5-5.1) 06/09/22 05:17 BUN 20 mg/dL (7-18) H 06/09/22 05:17 Creatinine 1.02 mg/dL (0.70-1.30) 06/09/22 05:17 Glucose 109 mg/dL (74-106) H 06/09/22 05:17 Total Bilirubin 0.8 mg/dL (0.2-1.0) 06/08/22 10:40 AST 29 U/L (15-37) 06/08/22 10:40 ALT 38 U/L (16-61) 06/08/22 10:40 Alkaline Phosphatase 54 U/L (45-117) 06/08/22 10:40 Home Medications: Aspirin [Aspirin EC 81 MG] 81 mg PO DAILY 06/08/22 Atorvastatin Calcium [Lipitor] 40 mg PO BEDTIME 06/08/22 Metoprolol Succinate 25 mg PO DAILY 06/08/22 Rivaroxaban [Xarelto] 2.5 mg PO BID 06/08/22 Ubidecarenone [Co Q-10] 200 mg PO BEDTIME 06/08/22 Vit C/Ascorb Sod/Multivit-Min [Emergen-C 500 mg Chewable Tab] 500 mg PO DAILY 06/08/22 Vit D3/Vit K2/Calc Frutoborate [Move Free Zhelg-Ofsqrq-Y5-D3] 4,000 mg PO DAILY 06/08/22 Followup: Waldo Song MD [Primary Care Provider] - Bayron Nunez MD [ACTIVE - CAN ADMIT] -
--- NOTE | 2022-06-12 00:35 | OP ---
Date of Procedure: 06/11/2022 Surgeon: NANCIE NUNEZ Procedures Performed: 1.Selective coronary angiogram. 2.Left heart catheterization. 3.Percutaneous coronary intervention of severe mid left anterior descending stenosis, used a 3.0 x 1 6 mm Synergy drug-eluting stent. 4.Balloon angioplasty of moderate in-stent restenosis of the mid left anterior descending, used a 3. 5 x 15 mm NC balloon. Access: Right radial artery 6-Moroccan closed with TR band. Indication: Non-ST elevation myocardial infarction. Complications: None. Anesthesia: Total sedation time was 45 minutes, used fentanyl and Versed. Complications: None. Estimated Blood Loss: Bleeding less than 20 mL. Description Of Procedure: After risks, benefits, and alternatives were explained, the patient agreed to proceed and signed informed consent. The patient was brought into the cardiac catheterization la boratory and prepped and draped in usual sterile fashion. Then I accessed right radial artery using pediatric micropuncture kit, placed 6-Moroccan Slender sheath and took a 5-Moroccan [place] 4 catheter into the aortic root over a J-wire, engaged left main and then right coronary artery, took standard views and the catheter was advanced over the wire into the LV, measured LVEDP and pullback did not record any gradient. Then we gave systemic heparin to assure ACT level above 250 and I loaded with 600 mg o f Plavix and the patient had already received aspirin today and took a 6-Moroccan EBU 3.5 guide into th e aortic root over a J-wire, engaged left main and then took short Runthrough wire into the LAD, plac ed it distally, and then I used a 3.5 x 15 mm NC balloon to perform angioplasty of the in-stent reste nosis of the mid LAD stent and then predilated the lesion that is right after the stent and then I pl aced a 3.0 x 16 mm Synergy drug-eluting stent distal to the mid LAD stent and had excellent angiograp hic result at the end. Then I removed the wire and the guide and sheath, placed TR band with good he mostasis. Findings: 1.Left main: Large and normal. 2.LAD: A large vessel with proximal diffuse 40% to 50% stenosis. Then, there is a mid LAD stent th at had 50% ISR, status post balloon angioplasty as above and there is a focal 80% stenosis status pos t successful PCI as above. Then, there is another focal 30% stenosis of the LAD and then becomes nor mal. The diagonal branch 1 is free of disease, but diagonal branch 2 appears to be jailed with the f irst stent, but it has NADINE-3 flow. 3.Left circumflex: Moderate-sized vessel with mild 30% proximal OM1 branch stenosis. 4.RCA: Large and dominant with distal 40% stenosis. 5.LVEDP is borderline at 10 mmHg. Conclusion: 1.Severe mid left anterior descending stenosis, status post successful percutaneous coronary interve ntion as above. 2.Mild coronary artery disease elsewhere. 3.Borderline left ventricular end-diastolic pressure at 10 mmHg. Recommendation: Aspirin, Plavix, statin, and cardiac risk factor modification. SR/MODL Voice ID: [id number] Report ID: [id number]
== END 2022-06-11 18:31 | disposition home or self-care (01) | DRG 247 ==
LOC: ER 10:16 → ERHOLD 13:32 → 4TH 15:03 → OBSVTOIN 06-09 17:13
PROVIDERS: ADMIT Internal Medicine; ATTEND Internal Medicine
PROC: 027034Z Dilation of Coronary Artery, One Artery with Drug-eluting Intraluminal Device, Percutaneous Approach (ICD-10-PCS; principal; 2022-06-11)
PROC: 4A023N7 Measurement of Cardiac Sampling and Pressure, Left Heart, Percutaneous Approach (ICD-10-PCS; 2022-06-11)
PROC: B2111ZZ Fluoroscopy of Multiple Coronary Arteries using Low Osmolar Contrast (ICD-10-PCS; 2022-06-11)
DX: I21.4 Non-ST elevation (NSTEMI) myocardial infarction (principal); I38 Endocarditis, valve unspecified; I10 Essential (primary) hypertension; E78.5 Hyperlipidemia, unspecified; I25.708 Atherosclerosis of coronary artery bypass graft(s), unspecified, with other forms of angina pectoris; I25.2 Old myocardial infarction; Z95.5 Presence of coronary angioplasty implant and graft; Z79.01 Long term (current) use of anticoagulants; Z79.82 Long term (current) use of aspirin; Z79.899 Other long term (current) drug therapy; Z87.891 Personal history of nicotine dependence; Z20.822 Contact with and (suspected) exposure to COVID-19
CPT/HCPCS: 36415; 71045; 71275; 74175; 76937; 80048; 80076; 83880; 84484; 85025; 85347; 85610; 87811; 93005; 93458; 96374; 96375; 99285; C1725; C1893; C9600; G0378; J0461; J1644; J1650; J2001; J2250; J2405; J3010; J7040; Q9967

== ENCOUNTER 2022-08-21 06:50 | Day surgery (SDC) | payer OTHER ==
[2022-08-19 10:51] LABS: Hematocrit 44.8 % (39.6-49.0); Lymphocytes % 21.6 % (15.3-44.8); MCV 92.1 fL (80-100); MPV 8.9 fL (7.6-11.3); RBC Red Blood Cell Count 4.87 M/uL (4.33-5.43)
[2022-08-19 10:56] LABS: Protime INR 0.99
[2022-08-19 11:25] LABS: Potassium 4.5 mEq/L (3.5-5.1)
--- NOTE | 2022-08-19 15:35 | EKG ---
Test Date: 2022-08-19 Test Time: 09:58:32 Cyanide Case Hardener: BRIT MEASUREMENT RESULTS: Intervals: Rate: 57 MS: 168 QRSD: 88 QT: 412 QTc: 401 [place]: P: 10 MS: 168 QRS: -1 T: 12 INTERPRETIVE STATEMENTS: Sinus bradycardia Septal infarct, age undetermined Abnormal ECG Compared to ECG 06/09/2022 11:24:54 No significant changes Electronically Signed On 08-19-22 15:34:18 CDT by Bert Benavides
--- NOTE | 2022-08-20 16:00 | EKG ---
Test Date: 2022-08-19 Test Time: 09:58:56 Marker Shipments: BRIT MEASUREMENT RESULTS: Intervals: Rate: 60 [place]: 184 QRSD: 96 QT: 414 QTc: 414 [place]: P: 58 [place]: 184 QRS: 0 T: 14 INTERPRETIVE STATEMENTS: Normal sinus rhythm Septal infarct, age undetermined Abnormal ECG Compared to ECG 08/19/2022 09:58:32 Sinus bradycardia no longer present Myocardial infarct finding still present Electronically Signed On 08-20-22 15:57:36 CDT by Bert Benavides
[2022-08-21] MEDS ORDERED: HEPA 1000U/500MLS 2,000 UNIT/1,000 ML BAG IV ONE (06:56)
[2022-08-21] MEDS ORDERED: MIDAZOLAM HCL 2 MG/2 ML INJ ONE (06:57)
[2022-08-21] MEDS ORDERED: FENTANYL CITR 100 MCG/2 ML ONE (06:57)
[2022-08-21] MEDS ORDERED: LIDOCAINE 1% 20 ML MDV ONE (06:57)
[2022-08-21] MEDS ORDERED: TICAGRELOR 90 MG TABLET PO ONE (06:58)
[2022-08-21] MEDS ORDERED: CLOPIDOGREL 75 MG TABLET ONE (06:58)
[2022-08-21] MEDS ORDERED: HEPARIN 5000 UNIT/ML 1 ML VIAL ONE (06:58)
[2022-08-21] MEDS ORDERED: VERAPAMIL HCL 10 MG/4 ML VIAL IV ONE (06:58)
[2022-08-21] MEDS ORDERED: HEPARIN 10,000 UNIT/10 ML VIAL IV ONE (06:58)
[2022-08-21] MEDS ORDERED: NITROGLYCERIN 100 MCG/ML SYR (for cath lab use only) IV ONE (06:59)
[2022-08-21] MEDS ORDERED: NITROGLYCERIN/D5W 0 MG/0 ML BTL IV ONE (06:59)
[2022-08-21] MEDS ORDERED: ATROPINE SULF 1 MG/10 ML SYR IV ONE (06:59)
[2022-08-21] MEDS ORDERED: NA CHLORIDE 0.9% 500 ML ONE (07:17)
[2022-08-21 10:34] VITALS: BP 133/70; O2SAT 96
--- NOTE | 2022-08-21 14:09 | OP ---
Date of Procedure: 08/21/2022 Surgeon: NANCIE NUNEZ Procedures Performed: 1.Selective coronary angiogram. 2.Left heart catheterization. Indication: Before aortic valve replacement surgery. Access: Right radial artery 6-Turkish closed with TR band. Complications: None. Bleeding: Less than 20 mL. Anesthesia: Total sedation time was 25 minutes. Description Of Procedure: After risks, benefits, and alternatives were explained, patient agreed to procedure and signed informal consent. Patient was brought to the cardiac catheterization laboratory , prepped and draped in the usual sterile fashion. Then, I accessed right radial artery using pediat elli micropuncture kit, placed 6-Turkish slender sheath and took a 5-Turkish [place] 4.0 catheter into the aortic root, engaged the left main and the right coronary artery. Took standard views and the juan diego ter was then advanced over the wire into the LV, measured LVEDP. Pullback not recording gradient. I then removed the catheter and the sheath, placed TR band with good hemostasis. Findings: 1.Left main with distal 20% to 30% stenosis. Then, the LAD proximal 40% to 50% stenosis and then th ere is widely patent mid LAD stent and then there is no significant disease. Normal diagonal branche s. 2.Left circumflex, no significant disease, but it is nondominant circulation. 3.RCA; large and dominant with luminal irregularities. 4.Elevated LVEDP at 17 mmHg. Conclusion: 1.Mild nonobstructive coronary artery disease. 2.Elevated LVEDP. Plan: Proceed with the surgical aortic valve replacement. SR/MODL Voice ID: [id number] Report ID: [id number]
== END 2022-08-21 11:00 | disposition home or self-care (01) ==
LOC: CCL 06:50
PROVIDERS: ATTEND Internal Medicine
DX: I35.1 Nonrheumatic aortic (valve) insufficiency (principal); I25.10 Atherosclerotic heart disease of native coronary artery without angina pectoris; I48.0 Paroxysmal atrial fibrillation; I10 Essential (primary) hypertension; E78.5 Hyperlipidemia, unspecified; Z87.891 Personal history of nicotine dependence; Z79.01 Long term (current) use of anticoagulants; Z79.899 Other long term (current) drug therapy
CPT/HCPCS: 93005 ×2; 85025; 80048; 36415; 85610; 85730; 93458; 76937; C1893; Q9966; J1644; J2001; J2250; J3010; J7040; J0461